=== PATIENT | female | born 1930 | race Caucasian/White ===

== ENCOUNTER 2017-12-17 08:00 | Inpatient (IN) | payer OTHER, MEDICARE ==
[2017-12-17] VITALS (8 sets, daily range): BP systolic 104–219; BP diastolic 52–119; PULSE 60–81; RESP 14–20; TEMP 97.4–98.4; O2SAT 93–97
[~2017-12-17] VITALS: Ht 157.5 cm; Wt 50.7 kg
[2017-12-17] MEDS ORDERED: VALSARTAN 80 MG TAB PO ONE (08:30)
[2017-12-17] MEDS ORDERED: SODIUM CHLORIDE 0.9% FLUSH 10 ML FLUSH IVF PRN (08:30)
--- NOTE | 2017-12-17 08:46 | PD ---
HPI Chief Complaint: General Weakness Time Seen by Provider: 08:21 Travel History International Travel<30 days: No Contact w/Intl Traveler<30days: No Traveled to known affect area: No History of Present Illness HPI 87-year-old female states for 6 months she has been having episodes where she goes completely weak and passes out but does not lose consciousness and is aware the whole time. She states her episodes have been increasing in severity and she just had 3. She denies any pain, fever or other concurrent complaints. She states her primary Dr. Fitzgerald has sent her to cardiology and neurology and next they are working on ENT. Her primary told her to come here given they were worsening. She states she is hard of hearing and history is difficult to obtain but she gives me a note from Dr. Fitzgerald that confirms her past medical history and medications. She states she did not take any of her medications today. 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) Past Surgical History Hysterectomy: Yes Other Surgery: Yes (CATARACT AND HEMORRHIOD SX) Social History Alcohol Use: No Tobacco Use: No Substance Use: No Allergies-Medications (Allergen,Severity, Reaction): Coded Allergies: Penicillins (Verified Allergy, Unknown, 12/17/17) gabapentin (Verified Allergy, Unknown, 12/17/17) lovastatin (Verified Allergy, Unknown, 12/17/17) Reported Meds & Prescriptions Reported Meds & Active Scripts Active Reported Valsartan 80 Mg Tab 80 Mg PO DAILY Tramadol (Tramadol HCl) 50 Mg Tab 50 Mg PO Q6H PRN Simvastatin 40 Mg Tab 40 Mg PO HS Nadolol 80 Mg Tab 80 Mg PO DAILY Lorazepam 0.5 Mg Tab 0.5 Mg PO HS PRN Atrovent HFA 12.9 GM Inh (Ipratropium [place]) 17 Mcg/Actuation Aer 2 Puff INH QID Eliquis (Apixaban) 2.5 Mg Tab 2.5 Mg PO BID Allopurinol 300 Mg Tab 300 Mg PO DAILY Review of Systems Except as stated in HPI: all other systems reviewed are Neg Physical Exam Narrative GENERAL: 87-year-old female in no apparent distress SKIN: Focused skin assessment warm/dry. HEAD: Atraumatic. Normocephalic. EYES: Pupils equal and round. No scleral icterus. No injection or drainage. ENT: No nasal bleeding or discharge. Mucous membranes pink and moist. NECK: Trachea midline. CARDIOVASCULAR: Regular rate and rhythm. No murmur appreciated. RESPIRATORY: No accessory muscle use. Clear to auscultation. Breath sounds equal bilaterally. GASTROINTESTINAL: Abdomen soft, non-tender, nondistended. Hepatic and splenic margins not palpable. MUSCULOSKELETAL: No obvious deformities. No clubbing. No cyanosis. NEUROLOGICAL: Awake. Moves all extremities. Normal speech. Data Data Last Documented VS Vital Signs Date Time Temp Pulse Resp B/P (MAP) Pulse Ox O2 Delivery O2 Flow Rate FiO2 12/17/17 10:09 63 195/85 (121) 12/17/17 08:34 97 Room Air 12/17/17 08:03 97.4 18 Orders Orders Valsartan (Diovan) (12/17/17 08:30) Electrocardiogram (12/17/17 08:25) Complete Blood Count With Diff (12/17/17 08:25) Comprehensive Metabolic Panel (12/17/17 08:25) Magnesium (Mg) (12/17/17 08:25) B-Type Natriuretic Peptide (12/17/17 08:25) Ckmb (Isoenzyme) Profile (12/17/17 08:25) Troponin I (12/17/17 08:25) Act Partial Throm Time (Ptt) (12/17/17 08:25) Prothrombin Time / Inr (Pt) (12/17/17 08:25) Chest, Single Ap (12/17/17 08:25) Ct Brain W/O Iv Contrast(Rout) (12/17/17 08:25) Ecg Monitoring (12/17/17 08:25) Iv Access Insert/Monitor (12/17/17 08:25) Oximetry (12/17/17 08:25) Sodium Chloride 0.9% Flush (Ns Flush) (12/17/17 08:30) Urinalysis - C+S If Indicated (12/17/17 08:25) Admit Order (Ed Use Only) (12/17/17 10:37) Labs Laboratory Tests Test 12/17/17 08:45 12/17/17 09:40 White Blood Count 5.3 TH/MM3 Red Blood Count 4.01 MIL/MM3 Hemoglobin 13.3 GM/DL Hematocrit 39.3 % Mean Corpuscular Volume 97.9 FL Mean Corpuscular Hemoglobin 33.2 PG Mean Corpuscular Hemoglobin Concent 33.9 % Red Cell Distribution Width 14.8 % Platelet Count 159 TH/MM3 Mean Platelet Volume 8.1 FL Neutrophils (%) (Auto) 71.7 % Lymphocytes (%) (Auto) 20.2 % Monocytes (%) (Auto) 6.2 % Eosinophils (%) (Auto) 1.6 % Basophils (%) (Auto) 0.3 % Neutrophils # (Auto) 3.8 TH/MM3 Lymphocytes # (Auto) 1.1 TH/MM3 Monocytes # (Auto) 0.3 TH/MM3 Eosinophils # (Auto) 0.1 TH/MM3 Basophils # (Auto) 0.0 TH/MM3 CBC Comment DIFF FINAL Differential Comment Prothrombin Time 10.1 SEC Prothromb Time International Ratio 1.0 RATIO Activated Partial Thromboplast Time 25.7 SEC Blood Urea Nitrogen 26 MG/DL Creatinine 0.99 MG/DL Random Glucose 189 MG/DL Total Protein 7.3 GM/DL Albumin 4.0 GM/DL Calcium Level 9.2 MG/DL Magnesium Level 1.8 MG/DL Alkaline Phosphatase 68 U/L Aspartate Amino Transf (AST/SGOT) 27 U/L Alanine Aminotransferase (ALT/SGPT) 28 U/L Total Bilirubin 0.7 MG/DL Sodium Level 129 MEQ/L Potassium Level 3.8 MEQ/L Chloride Level 93 MEQ/L Carbon Dioxide Level 27.4 MEQ/L Anion Gap 9 MEQ/L Estimat Glomerular Filtration Rate 53 ML/MIN Total Creatine Kinase 94 U/L Troponin I LESS THAN 0.02 NG/ML B-Type Natriuretic Peptide 318 PG/ML Urine Color COLORLESS Urine Turbidity CLEAR Urine pH 7.5 Urine Specific [place] 1.004 Urine Protein NEG mg/dL Urine Glucose (UA) TRACE mg/dL Urine Ketones NEG mg/dL Urine Occult Blood NEG Urine Nitrite NEG Urine Bilirubin NEG Urine Urobilinogen LESS THAN 2.0 MG/DL Urine Leukocyte Esterase NEG Urine RBC LESS THAN 1 /hpf Urine WBC LESS THAN 1 /hpf Microscopic Urinalysis Comment CULT NOT INDICATED MDM Medical Decision Making Medical Screen Exam Complete: Yes Emergency Medical Condition: Yes Medical Record Reviewed: Yes (Past history confirmed) Interpretation(s) CBC & BMP Diagram 12/17/17 08:45 Total Protein 7.3, Albumin 4.0, Calcium Level 9.2, Magnesium Level 1.8, Alkaline Phosphatase 68, Aspartate Amino Transf (AST/SGOT) 27, Alanine Aminotransferase (ALT/SGPT) 28, Total Bilirubin 0.7 Last [address] 12/17/17824 Signed Impressions: Service Date/Time: Sunday, December 17, 2017 08:41 - CONCLUSION: No acute disease. Porfirio Ferreira MD Chest X-Ray 12/17/17824 Signed Impressions: Service Date/Time: Sunday, December 17, 2017 08:56 - CONCLUSION: Normal examination. Mild hyperinflation. Porfirio Ferreira MD Differential Diagnosis Anemia, intracranial, UTI, worsening renal failure, electrolyte abnormality Narrative Course Will check blood work, imaging and reevaluate. Patient has hyponatremia and patient denies history of this. Will place in observation for further monitoring. Blood pressure has come down with her home medication. She agrees and was updated. Physician Communication Physician Communication dr sibley agrees to admit Diagnosis Primary Impression: Hyponatremia Additional Impression: Weakness Admitting Information Admitting Physician Requests: Observation India Herrera MD Dec 17, 2017 08:46
[2017-12-17] MEDS ORDERED: NADO80TA PO (08:50)
[2017-12-17] MEDS ORDERED: IPRA17I INH (08:50)
[2017-12-17] MEDS ORDERED: LORA0.5T PO (08:50)
[2017-12-17] MEDS ORDERED: SIMV40TA PO (08:50)
[2017-12-17] MEDS ORDERED: ALLO300T2 PO (08:50)
[2017-12-17] MEDS ORDERED: VALS1TAB64 PO (08:50)
[2017-12-17] MEDS ORDERED: TRAM50TA PO (08:50)
[2017-12-17] MEDS ORDERED: APIX2.5T PO (08:50)
--- NOTE | 2017-12-17 08:53 | RADRPT ---
EXAM DATE/TIME: 12/17/2017 08:41 [facility] COMPARISON: No previous studies available for comparison. INDICATIONS : Dizziness, weakness RADIATION DOSE: 33.67 CTDIvol (mGy) MEDICAL HISTORY : Cardiovascular disease. SURGICAL HISTORY : None. ENCOUNTER: Initial ACUITY: 1 day PAIN SCALE: 1/10 LOCATION: cranial TECHNIQUE: Multiple contiguous axial images were obtained of the head. Using automated exposure control and adj ustment of the mA and/or kV according to patient size, radiation dose was kept as low as reasonably a chievable to obtain optimal diagnostic quality images. DICOM format image data is available electro nically for review and comparison. FINDINGS: There is marked central and cortical atrophy with dilatation of ventricular and sulcal spaces. There is no parenchymal hemorrhage, acute infarction or mass lesion identified. There are no extra-axial fluid collections appreciated. The posterior fossa is unremarkable with midline fourth ventricle. T he portion of the orbits and paranasal sinuses visualized are unremarkable. CONCLUSION: No acute disease. Porfirio Ferreira MD on December 17, 2017 at 8:50 Board Certified Radiologist. This report was verified electronically.
--- NOTE | 2017-12-17 09:12 | RADRPT ---
EXAM DATE/TIME: 12/17/2017 08:56 [facility] COMPARISON: No previous studies available for comparison. INDICATIONS : Shortness of breath. MEDICAL HISTORY : Hypertension. SURGICAL HISTORY : None. ENCOUNTER: Initial ACUITY: 1 day PAIN SCORE: 0/10 LOCATION: Bilateral chest FINDINGS: A single view of the chest demonstrates the lungs to be symmetrically aerated without evidence of mas s, infiltrate or effusion. The cardiomediastinal contours are unremarkable. Osseous structures are intact. CONCLUSION: Normal examination. Mild hyperinflation. Porfirio Ferreira MD on December 17, 2017 at 9:10 Board Certified Radiologist. This report was verified electronically.
[2017-12-17 09:20] LABS: AUTOMATED NEUTROPHIL # 3.8 TH/MM3 (1.8-7.7); BASOPHIL % 0.3 % (0.0-2.0); EOSINOPHIL # 0.1 TH/MM3 (0-0.4); EOSINOPHIL % 1.6 % (0.0-4.0); HEMATOCRIT 39.3 % (35.0-46.0); HEMOGLOBIN 13.3 GM/DL (11.6-15.3); LYMPH % 20.2 % (9.0-44.0); LYMPHOCYTE # 1.1 TH/MM3 (1.0-4.8); MEAN CELL VOLUME 97.9 FL (80.0-100.0); MEAN CORPUSCULAR HEMOGLOBIN 33.2 PG (27.0-34.0); MEAN CORPUSCULAR HGB CONC 33.9 % (32.0-36.0); MEAN PLATELET VOLUME 8.1 FL (7.0-11.0); MONO % 6.2 % (0.0-8.0); MONOCYTE # 0.3 TH/MM3 (0-0.9); NEUT % 71.7 % (16.0-70.0); PLATELET COUNT 159 TH/MM3 (150-450); RED BLOOD COUNT 4.01 MIL/MM3 (4.00-5.30); RED CELL DISTRIBUTION WIDTH 14.8 % (11.6-17.2); WHITE BLOOD COUNT 5.3 TH/MM3 (4.0-11.0)
[2017-12-17 09:33] LABS: PROTHROMBIN TIME - PATIENT 10.1 SEC (9.8-11.6)
[2017-12-17 09:35] LABS: AST (GOT) 27 U/L (15-37); BICARBONATE 27.4 MEQ/L (21.0-32.0); BLOOD UREA NITROGEN 26 MG/DL (7-18); CALCIUM 9.2 MG/DL (8.5-10.1); CHLORIDE 93 MEQ/L (98-107); CREATININE 0.99 MG/DL (0.50-1.00); GLOMERULAR FILTRATION RATE 53 ML/MIN (>89); GLUCOSE,RANDOM 189 MG/DL (74-106); MAGNESIUM 1.8 MG/DL (1.5-2.5); SODIUM (NA) 129 MEQ/L (136-145)
[2017-12-17 09:36] LABS: ALT (GPT) 28 U/L (10-53)
[2017-12-17 09:39] LABS: ALKALINE PHOSPHATASE 68 U/L (45-117); TOTAL BILIRUBIN ADULT 0.7 MG/DL (0.2-1.0); TOTAL PROTEIN 7.3 GM/DL (6.4-8.2); TROPONIN I LESS THAN 0.02 NG/ML (0.02-0.05)
[2017-12-17 09:55] LABS: BILIRUBIN, URINE NEG (NEG); BLOOD, URINE NEG (NEG); GLUCOSE,URINE TRACE mg/dL (NEG); KETONE, URINE NEG (NEG); NITRITE,URINE NEG (NEG); PH, URINE 7.5 (5.0-8.5); URINE COLOR COLORLESS (YELLW/STRAW); URINE LEUKOCYTE ESTERASE NEG (NEG)
[2017-12-17] MEDS ORDERED: GADODIAMIDE PF 287 MG/ML 10 ML VIAL (for RAD MRI) IVCONTRAST ONE (10:40)
[2017-12-17] MEDS ORDERED: SODIUM CHLORIDE 0.9% FLUSH 10 ML FLUSH IV FLUSH PRN (11:30)
[2017-12-17] MEDS ORDERED: ACETAMINOPHEN 325 MG TAB PO PRN (11:30)
[2017-12-17] MEDS ORDERED: traMADol HCL 50 MG TAB PO PRN (11:30)
[2017-12-17] MEDS ORDERED: cloNIDine HCL 0.1 MG TAB PO PRN (11:30)
[2017-12-17] MEDS ORDERED: NALOXONE HCL 0.4 MG/ML AMP IV PUSH PRN (11:30)
--- NOTE | 2017-12-17 13:40 | EKG ---
Date Performed: 12/17/2017 Time Performed: 08:24:39 PTAGE: 87 years EKG: Sinus rhythm WITH FIRST DEGREE AV BLOCK ABNORMAL ECG NO PREVIOUS TRACING DOCTOR: Juvenal Medina Interpretating Date/Time 12/17/2017 13:37:16
[2017-12-17] MEDS ORDERED: RESP: ALBUTEROL 2.5 MG/IPRATROPIUM 0.5 MG NEB (PRN) NEB (13:45)
--- NOTE | 2017-12-17 14:19 | HHI.HP ---
[facility] Jerica Fitzgerald MD Admission Diagnosis hyponatremia, weakness Diagnoses: Chief Complaint: Weakness Travel History International Travel<30 Days: No Contact w/Intl Traveler <30 Da: No Traveled to Known Affected Are: No History of Present Illness The patient is an 87-year-old female with a past medical history of A. fib and CVA who is presenting to the hospital with weakness. The patient says that she recently moved to [facility] and the [facility]. She says she has been having a hard time over there and has not been getting the services she requires. She says for the past few months she has been having these episodes of weakness. She says she does not pass out and is fully alert during these episodes. She feels a strange sensation and she loses control of her body. She says the sensations shortly disappear. She tries to sit down during these episodes so she does not fall down. She said they have been occurring at a rate of 2 times per day. She has been following up with her primary care doctor and recently had an MRI done which was reportedly negative for any acute process. She also saw her substance addiction coordinator recently who did not believe her symptoms to be of cardiac origin. The patient endorses difficulty with her speech. She has a hard time saying the words she wants to. She also endorses some difficulty swallowing, stating that she has been living off of Boost. The patient says she has lost about 20 pounds recently. She believes it is difficult to be living alone at this time. Review of Systems Except as stated in HPI: all other systems reviewed are Neg Past Family Social History Past Medical History A fib First degree AVB Carotid artery stenosis CVA CKD HLP Neuropathy Zenker's diverticulum Past Surgical History Hysterectomy Hemorrhoidectomy Allergies: Coded Allergies: Penicillins (Verified Allergy, Unknown, 12/17/17) gabapentin (Verified Allergy, Unknown, 12/17/17) lovastatin (Verified Allergy, Unknown, 12/17/17) Active Ordered Medications Current Medications Medications (Trade) Dose Ordered Sig/Silviano Route Start Time Stop Time Status Last Admin (Zyloprim) 300 mg DAILY PO 12/18/17 09:00 (Eliquis) 2.5 mg BID PO 12/17/17 12:30 (Ativan) 0.5 mg HS PRN PO 12/17/17 21:00 (Diovan) 80 mg DAILY PO 12/18/17 09:00 Patient Own Medication PT OWN MED: SIMVASTA... HS PO 12/17/17 21:00 Future Hold (Corgard) 80 mg DAILY PO 12/17/17 13:00 (Catapres) 0.1 mg Q6H PRN PO 12/17/17 11:30 Sodium Chloride 1,000 ml @ 100 mls/hr Q10H IV 12/17/17 12:30 (NS Flush) 2 ml UNSCH PRN IV FLUSH 12/17/17 11:30 (NS Flush) 2 ml BID IV FLUSH 12/17/17 21:00 (Tylenol) 650 mg Q4H PRN PO 12/17/17 11:30 (Tylenol) 650 mg Q6H PRN PO 12/17/17 11:30 (Ultram) 50 mg Q4H PRN PO 12/17/17 11:30 (Narcan Inj) 0.4 mg UNSCH PRN IV PUSH 12/17/17 11:30 (Michelle-Colace) 1 tab BID PO 12/17/17 21:00 (Duoneb Neb) 1 ampule Q2HR NEB PRN NEB 12/17/17 13:45 UNV Family History No pertinent family history Social History The pt lives alone. The pt does not smoke or drink. Physical Exam Vital Signs Vital Signs Date Time Temp Pulse Resp B/P (MAP) Pulse Ox O2 Delivery O2 Flow Rate FiO2 12/17/17 12:51 12/17/17 12:06 66 14 104/52 (69) 95 Room Air 12/17/17 10:09 63 195/85 (121) 12/17/17 08:34 97 Room Air 12/17/17 08:03 97.4 75 18 219/119 (152) 93 Physical Exam GENERAL: This is a well-nourished, well-developed patient, in no apparent distress. SKIN: No rashes, ecchymoses or lesions. Cool and dry. HEAD: Atraumatic. Normocephalic. No temporal or scalp tenderness. EYES: Pupils equal round and reactive. Extraocular motions intact. No scleral icterus. No injection or drainage. ENT: Nose without bleeding, purulent drainage or septal hematoma. Throat without erythema, tonsillar hypertrophy or exudate. Uvula midline. Airway patent. NECK: Trachea midline. No JVD or lymphadenopathy. Supple, nontender, no meningeal signs. CARDIOVASCULAR: Irregularly irregular rhythm. RESPIRATORY: Clear to auscultation. Breath sounds equal bilaterally. No wheezes , rales, or rhonchi. GASTROINTESTINAL: Abdomen soft, non-tender, nondistended. No hepato-splenomegaly , or palpable masses. No guarding. MUSCULOSKELETAL: Extremities without clubbing, cyanosis, or edema. No joint tenderness, effusion, or edema noted. NEUROLOGICAL: Awake and alert. Cranial nerves II through XII intact. Motor 5/5 in upper extremities, 4/5 in lower extremities. Laboratory Laboratory Tests Test 12/17/17 08:45 12/17/17 09:40 White Blood Count 5.3 Red Blood Count 4.01 Hemoglobin 13.3 Hematocrit 39.3 Mean Corpuscular Volume 97.9 Mean Corpuscular Hemoglobin 33.2 Mean Corpuscular Hemoglobin Concent 33.9 Red Cell Distribution Width 14.8 Platelet Count 159 Mean Platelet Volume 8.1 Neutrophils (%) (Auto) 71.7 Lymphocytes (%) (Auto) 20.2 Monocytes (%) (Auto) 6.2 Eosinophils (%) (Auto) 1.6 Basophils (%) (Auto) 0.3 Neutrophils # (Auto) 3.8 Lymphocytes # (Auto) 1.1 Monocytes # (Auto) 0.3 Eosinophils # (Auto) 0.1 Basophils # (Auto) 0.0 CBC Comment DIFF FINAL Differential Comment Prothrombin Time 10.1 Prothromb Time International Ratio 1.0 Activated Partial Thromboplast Time 25.7 Blood Urea Nitrogen 26 Creatinine 0.99 Random Glucose 189 Total Protein 7.3 Albumin 4.0 Calcium Level 9.2 Magnesium Level 1.8 Alkaline Phosphatase 68 Aspartate Amino Transf (AST/SGOT) 27 Alanine Aminotransferase (ALT/SGPT) 28 Total Bilirubin 0.7 Sodium Level 129 Potassium Level 3.8 Chloride Level 93 Carbon Dioxide Level 27.4 Anion Gap 9 Estimat Glomerular Filtration Rate 53 Total Creatine Kinase 94 Troponin I LESS THAN 0.02 B-Type Natriuretic Peptide 318 Urine Color COLORLESS Urine Turbidity CLEAR Urine pH 7.5 Urine Specific [place] 1.004 Urine Protein NEG Urine Glucose (UA) TRACE Urine Ketones NEG Urine Occult Blood NEG Urine Nitrite NEG Urine Bilirubin NEG Urine Urobilinogen LESS THAN 2.0 Urine Leukocyte Esterase NEG Urine RBC LESS THAN 1 Urine WBC LESS THAN 1 Microscopic Urinalysis Comment CULT NOT INDICATED Result Diagram: 12/17/1784412/17/17844 Imaging Last Impressions Head CT 12/17/17824 Signed Impressions: Service Date/Time: Sunday, December 17, 2017 08:41 - CONCLUSION: No acute disease. Porfirio Ferreira MD Chest X-Ray 12/17/17824 Signed Impressions: Service Date/Time: Sunday, December 17, 2017 08:56 - CONCLUSION: Normal examination. Mild hyperinflation. MD Christiano Wan VTE Risk Assessment Christiano VTE Risk Assessment: Mod/High Risk (score >= 2) Caprini Risk Assessment Model Point Value = 1 Point Value = 2 Point Value = 3 Point Value = 5 Age 41-60 Minor surgery BMI > 25 kg/m2 Swollen legs Varicose veins or History of unexplained or recurrent spontaneous Oral contraceptives or hormone replacement Sepsis (< 1 month) Serious lung disease, including pneumonia (< 1 month) Abnormal pulmonary function Acute myocardial infarction Congestive heart failure (< 1 month) History of inflammatory bowel disease Medical patient at bed rest Age 61-74 Arthroscopic surgery Major open surgery (> 45 min) Laparoscopic surgery (> 45 min) Malignancy Confined to bed (> 72 hours) Immobilizing plaster cast Central venous access Age >= 75 History of VTE Family history of VTE Factor V Leiden Prothrombin 34175A Lupus anticoagulant Anticardiolipin antibodies Elevated serum homocysteine Heparin-induced thrombocytopenia Other congenital or acquired thrombophilia Stroke (< 1 month) Elective arthroplasty Hip, pelvis, or leg fracture Acute spinal cord injury (< 1 month) Prophylaxis Regimen Total Risk Factor Score Risk Level Prophylaxis Regimen 0-1 Low Early ambulation 2 Moderate Order ONE of the following: *Sequential Compression Device (SCD) *Heparin 5000 units SQ BID 3-4 Higher Order ONE of the following medications: *Heparin 5000 units SQ TID *Enoxaparin/Lovenox 40 mg SQ daily (WT < 150 kg, CrCl > 30 mL/min) *Enoxaparin/Lovenox 30 mg SQ daily (WT < 150 kg, CrCl > 10-29 mL/min) *Enoxaparin/Lovenox 30 mg SQ BID (WT < 150 kg, CrCl > 30 mL/min) AND/OR *Sequential Compression Device (SCD) 5 or more Highest Order ONE of the following medications: *Heparin 5000 units SQ TID (Preferred with Epidurals) *Enoxaparin/Lovenox 40 mg SQ daily (WT < 150 kg, CrCl > 30 mL/min) *Enoxaparin/Lovenox 30 mg SQ daily (WT < 150 kg, CrCl > 10-29 mL/min) *Enoxaparin/Lovenox 30 mg SQ BID (WT < 150 kg, CrCl > 30 mL/min) AND *Sequential Compression Device (SCD) Assessment and Plan Assessment and Plan Weakness The pt endorses episodes where she feels strange and has no control over her body. She said she follows with her PCP and recently had a normal MRI. She also saw cardiology who did not believe her symptoms were of cardiac options. She has lower extremity weakness but does have neuropathy. She also endorses dysarthria. She has a history of CVA. - neurology consult requested. - carotid US and EEG pending. - neuro checks. - PT/OT/ST. - continue Eliquis. Hypertensive urgency May be factor to her above symptoms. - resume home meds. Adjust regimen as needed. - clonidine as needed. Dysphagia The pt endorses problems with swallowing. She has a history of Zenker's diverticulum. - full liquid diet. - swallow eval. - GI consult if needed. Hyponatremia Baseline unknown. Likely s/t decreased PO intake. - follow BMP. - ADAT. Hyperglycemia Glucose elevated on admission. - check A1c. PPx: Dandre Discussed Condition With Pt, Dr. Herrera, nurse Physician Certification 2 Midnight Certification Type: Admission for Inpatient Services Order for Inpatient Services The services are ordered in accordance with Medicare regulations or non- Medicare payer requirements, as applicable. In the case of services not specified as inpatient-only, they are appropriately provided as inpatient services in accordance with the 2-midnight benchmark. Estimated LOS (days): 2 days is the estimated time the patient will need to remain in the hospital, assuming treatment plan goals are met and no additional complications. Post-Hospital Plan: Not yet determined Niko Chicas DO Dec 17, 2017 14:19
[2017-12-17] MEDS: SODIUM CHLOR 0.9% 1000 ML INJ 1,000 ML IV SCH ×2 (15:13→21:53)
[2017-12-17] MEDS: NADOLOL 40 MG TAB PO SCH (15:13)
--- NOTE | 2017-12-17 15:33 | RADRPT ---
EXAM DATE/TIME: 12/17/2017 14:26 [facility] COMPARISON: No previous studies available for comparison. INDICATIONS : Syncope. MEDICAL HISTORY : Hypertension. Hard of hearing. Coronary artery disease. Anticoagulant therapy, eliquis. Atrial fi brillation. GOUT. Kidney disease. Neuropathy. Mitral valve regurge. SURGICAL HISTORY : Hysterectomy. Bilateral cataract surgery. ENCOUNTER: Initial ACUITY: 2 days PAIN SCORE: 1/10 LOCATION: Bilateral neck PEAK SYSTOLIC VELOCITIES (cm/sec): ICA/CCA RATIO: Right: 1.5 Left: 3.4 ICA: Right: 129.8 Left: 79.9 CCA: Right: 86.6 Left: 23.6 ECA: Right: 80.6 Left: 59.0 VERTEBRAL: Right: 123.9 antegrade Left: 63.3 antegrade Elevated flow velocities and ICA/CCA ratios have been found to correlate with increased degrees of vessel stenosis, calculated as percentage of diameter relative to a normal segment of distal ICA/CCA FINDINGS: RIGHT CAROTID: There is fibrous plaque with elevated velocity which may correspond to 50% stenosis. LEFT CAROTID: There is elevated ratios with decreased velocities in the common carotid artery. Severe foot proximal stenosis. VERTEBRAL ARTERIES: Antegrade flow is seen in both vertebral arteries. MISCELLANEOUS: None. CONCLUSION: Potential stenosis bilaterally in the bifurcation on the right and proximally on the left. CT angiogr aphy of the cervicobrachial arch and carotid arteries is recommended for further evaluation if clinic ally indicated. Juvenal Adam MD on December 17, 2017 at 15:29 Board Certified Radiologist. This report was verified electronically.
[2017-12-17] MEDS: APIXABAN 2.5 MG TABLET PO SCH ×2 (16:27→21:52)
[2017-12-17 16:54] LABS: HEMOGLOBIN A1C 6.1 % (4.3-6.0)
--- NOTE | 2017-12-17 20:09 | MB ---
cc: Jagdish Luna MD, PhD DATE: 12/17/2017 REASON FOR CONSULTATION: Episodic weakness. HISTORY OF PRESENT ILLNESS: Ms. Sims is a very nice 87-year-old female who has a long history of neuropathy, for the past several months has had intermittent weakness on one side or the other, right side or left side alternating, lasting several minutes at a time. She does have history of atrial fibrillation. She takes Eliquis. She has headaches, but no history of migraine headaches. PAST MEDICAL HISTORY: History of atrial fibrillation, first degree AV block, carotid stenosis, stroke in the past, hyperlipidemia, neuropathy, Zenker's diverticulum, hysterectomy, and hemorrhoidectomy. ALLERGIES: 1. PENICILLIN. 2. GABAPENTIN. 3. LOVASTATIN. CURRENT MEDICATIONS: 1. Allopurinol. 2. Valsartan. 3. Ativan. 4. Senna. 5. Nadolol. 6. Eliquis 2.5 mg b.i.d. 7. Sodium chloride. 8. Clonidine 9. Tylenol. 10. Ultram. 11. Narcan. NEUROLOGIC EXAMINATION: VITAL SIGNS: Blood pressure is 141/63, pulse 60, respiratory rate is 16, temperature 98.2 degrees. HIGHER CORTICAL FUNCTION: Normal. CRANIAL NERVES: 2-12 are normal. MOTOR EXAM: 5/5 strength of all groups. There is no drift. Fine motor skills are normal. Reflexes are symmetric. DIAGNOSTIC STUDIES: CT of the brain is normal. EKG shows first degree AV block, sinus rhythm. Carotid ultrasound: Bilateral carotid stenosis. Recommend CTA. LABORATORY DATA: White count 5300; hemoglobin 13.3; hematocrit 39%; platelets 159,000. Sodium is 129, potassium 3.8, chloride 93, CO2 is 27, the BUN is 26, creatinine 0.99, GFR is 53, glucose 189, AST 27, ALT is 28. PT 10, INR 1, aPTT 25.7. IMPRESSION: Intermittent weakness, right side versus left side. Rule out transient ischemic attack. Rule out basilar migraine. Rule out cervical spondylosis. RECOMMENDATION: MRI brain. Also, we will obtain an a.m. MRA of the brain, MRI of the cervical spine and MRA of the neck. Add low dose aspirin to the Eliquis with the possibility of transient ischemic attack. Jagdish Luna MD, PhD RODRIGO/ARCHIE , 07:52 PM , 08:08 PM
[2017-12-17] MEDS: ASPIRIN EC 81 MG TABEC PO SCH (20:30)
[2017-12-17] MEDS ORDERED: SIMVASTATIN 40 MG PO SCH (21:00)
[2017-12-17] MEDS: SODIUM CHLORIDE 0.9% FLUSH 10 ML FLUSH IV FLUSH SCH (21:00)
[2017-12-17] MEDS: DOCUSATE SODIUM 50 MG/SENNA 8.6 MG TAB PO SCH (21:52)
[2017-12-17] MEDS: LORazepam 0.5 MG TAB PO PRN (21:52)
[2017-12-18] VITALS (7 sets, daily range): BP systolic 121–198; BP diastolic 64–88; PULSE 57–70; RESP 16–20; TEMP 97.4–98.5; O2SAT 94–97
[2017-12-18] MEDS: APIXABAN 2.5 MG TABLET PO SCH ×2 (07:29→22:34)
[2017-12-18] MEDS: DOCUSATE SODIUM 50 MG/SENNA 8.6 MG TAB PO SCH ×2 (07:29→22:34)
[2017-12-18] MEDS: ASPIRIN EC 81 MG TABEC PO SCH (07:29)
[2017-12-18] MEDS: ALLOPURINOL 300 MG TAB PO SCH (07:29)
[2017-12-18] MEDS: LORazepam 0.5 MG TAB PO PRN (07:29)
[2017-12-18] MEDS: SODIUM CHLOR 0.9% 1000 ML INJ 1,000 ML IV SCH ×2 (08:30→18:30)
[2017-12-18] MEDS ORDERED: VALSARTAN 80 MG TAB PO SCH (09:00)
[2017-12-18] MEDS: NADOLOL 40 MG TAB PO SCH (09:00)
[2017-12-18] MEDS: SODIUM CHLORIDE 0.9% FLUSH 10 ML FLUSH IV FLUSH SCH ×2 (09:00→22:34)
[2017-12-18] MEDS ORDERED: NADOLOL 80 MG PO SCH (09:00)
--- NOTE | 2017-12-18 09:04 | RADRPT ---
EXAM DATE/TIME: 12/18/2017 07:48 [facility] COMPARISON: No previous studies available for comparison. INDICATIONS : Inability to ambulate. MEDICAL HISTORY : Hypertension. Hypercholesterolemia. CVA. SURGICAL HISTORY : Hysterectomy. ENCOUNTER: Initial ACUITY: 1 day PAIN SCORE: 0/10 LOCATION: cranial TECHNIQUE: Multiplanar, multisequence MRI examination of the cervical spine was performed. FINDINGS: The patient has had previous intervertebral fusion at C3-4. There is grade 1 anterolisthesis of C4 on C5 and retrolisthesis of C6 on C7. Severe disc space narrowing at C5-6 and C6-7 noted, and moderate disc space narrowing at C4-5. Grade 1 anterolisthesis of C7 on T1 also noted. Moderate multilevel fac et hypertrophic changes are present. There is no prevertebral soft tissue swelling or compression def ormity. There is mild reactive endplate edema at C6-7, as well as C5-C6 to a lesser extent. C2-C3: There is mild left foraminal encroachment. C3-C4: Diffuse osteophytic ridging with effacement of the ventral thecal sac and moderate stenosis. There is severe bilateral foraminal narrowing and uncovertebral hypertrophy. C4-C5: Diffuse disc osteophyte complex with moderate to severe canal stenosis. Uncovertebral hypertrophy and severe bilateral foraminal narrowing. C5-C6: Severe canal stenosis with mild mass effect on the cord secondary to a diffuse disc osteophyte comple x effacing the thecal sac. There is severe foraminal stenosis bilaterally secondary to uncovertebral hypertrophy and facet hypertrophy. C6-C7: Severe right, moderate left foraminal stenosis secondary to facet and uncovertebral hypertrophy and a diffuse disc osteophyte complex with mild abutment of the cord and moderate canal stenosis. C7-T1: The thecal sac has a normal configuration. There is no evidence of disc herniation or spinal canal s tenosis. The neural foramina are patent bilaterally. CONCLUSION: Degenerative changes and post surgical changes are noted as above. Coleman Santiago MD on December 18, 2017 at 8:27 Board Certified Radiologist. This report was verified electronically.
--- NOTE | 2017-12-18 09:04 | RADRPT ---
EXAM DATE/TIME: 12/18/2017 07:48 [facility] COMPARISON: CT BRAIN W/O CONTRAST, December 17, 2017, 8:41. INDICATIONS : Inability to ambulate. CONTRAST: 10 cc Omniscan (gadodiamide) IV MEDICAL HISTORY : Hypercholesterolemia. Hypertension. CVA. SURGICAL HISTORY : Hemorrhoidectomy. Hysterectomy. ENCOUNTER: Initial ACUITY: 1 day PAIN SCORE: 0/10 LOCATION: Paraspinal TECHNIQUE: Multiplanar, multisequence MRI of the brain was performed both prior to and following the administrat ion of paramagnetic contrast. FINDINGS: Diffusion weighted images demonstrate no evidence for acute infarction. There is mild volume loss see n diffusely. Scattered foci of increased flair signal are noted in the bilateral periventricular whit e matter. This is most likely on the basis of mild chronic microvascular ischemic disease. There is n o hemorrhage or mass. No abnormal areas of enhancement are identified following contrast administrati on. CONCLUSION: Mild atrophy and white matter disease. Coleman Santiago MD on December 18, 2017 at 9:00 Board Certified Radiologist. This report was verified electronically.
--- NOTE | 2017-12-18 09:38 | RADRPT ---
EXAM DATE/TIME: 12/18/2017 07:48 [facility] COMPARISON: US CAROTID ARTERIES, December 17, 2017, 14:26. MRI BRAIN W & W/O CONTRAST, December 18, 2017, 7:48. MRA BRAIN W/O CONTRAST, December 18, 2017, 7:48. INDICATIONS : Stenosis. CONTRAST: 10 cc Omniscan (gadodiamide) IV MEDICAL HISTORY : Hypertension. Hypercholesterolemia. CVA. SURGICAL HISTORY : Hysterectomy. ENCOUNTER: Initial ACUITY: 1 day PAIN SCORE: 0/10 LOCATION: neck Percent stenosis is calculated using the diameter of the stenotic region over the diameter of the nor mal distal internal carotid artery. TECHNIQUE: Bolus infused MRA of the extracranial circulation was performed using a neurovascular coil. Post pro cessing was performed including rotating subvolume maximum intensity projections of each carotid lupillo ry, rotating full volume maximum intensity projections of both carotid arteries, sagittal and coronal sliding thin slab reformations of each carotid artery, and left oblique sliding thin slab reformatio n through the aortic arch to include the origin of the arch branch vessels. FINDINGS: There is mild narrowing of the left subclavian artery distal to the origin of the left vertebral lupillo ry extending over 2.5 cm on coronal image 27. AORTIC ARCH: There is a three vessel origin of the great vessels from the aorta. No evidence of ostial narrowing. RIGHT CAROTID: The common carotid artery is intact. The carotid bulb has a normal configuration without ulceration or narrowing. The internal carotid artery lumen is smooth without stenosis. The external carotid ar sunny is intact. LEFT CAROTID: There is a severe, hemodynamically significant stenosis of the left distal common carotid artery at t he carotid bifurcation. There is essentially a 3 mm segment of vessel without signal visualized intra luminally. This is related to a high grade stenosis over 70%. VERTEBRALS: The vertebral arteries have a symmetric diameter. No stenotic lesions are seen. CONCLUSION: Hemodynamically significant stenosis of the left distal common carotid artery at the bifurcation with moderate atherosclerosis of the left carotid bulb. Mild left subclavian atherosclerosis is also seen as above. Coleman Santiago MD on December 18, 2017 at 9:32 Board Certified Radiologist. This report was verified electronically.
--- NOTE | 2017-12-18 09:45 | RADRPT ---
EXAM DATE/TIME: 12/18/2017 08:44 [facility] COMPARISON: No previous studies available for comparison. INDICATIONS : General weakness, evaluate for spinal cord compression. RADIATION DOSE: 38.66 CTDIvol (mGy) MEDICAL HISTORY : Stroke. Hypertension. SURGICAL HISTORY : Hysterectomy. ENCOUNTER: Initial ACUITY: 1 day PAIN SCALE: 0/10 LOCATION: Bilateral neck TECHNIQUE: Volumetric scanning of the cervical spine was performed. Multiplanar reconstructions in the sagittal, coronal and oblique axial planes were performed. Using automated exposure control and adjustment o f the mA and/or kV according to patient size, radiation dose was kept as low as reasonably achievable to obtain optimal diagnostic quality images. DICOM format image data is available electronically f or review and comparison. FINDINGS: There is previous intervertebral fusion at C3-4 with grade 1 anterolisthesis of C4 on C5, grade 1 ret rolisthesis of C6 on C7 and grade 1 anterolisthesis of C7 on T1. There are no compression deformities . Severe disc space narrowing with sclerosis and osteophytosis at C4-5 through C6-7. Mild disc space narrowing at C7-T1. Moderate multilevel facet hypertrophic changes are noted. There is moderate uncov ertebral hypertrophy at C4-5 to C6-7. Odontoid process is intact. C2-C3: The bony spinal canal is normal in size. No evidence of disc bulge or herniation. The neural forami na are bilaterally patent. C3-C4: Moderate to severe left, mild right foraminal narrowing. Mild canal narrowing. C4-C5: There is severe left foraminal stenosis secondary to facet and uncovertebral hypertrophy. C5-C6: Moderate canal stenosis secondary to a diffuse disc osteophyte complex and uncovertebral hypertrophy with severe bilateral right greater than left foraminal narrowing. C6-C7: Diffuse disc osteophyte complex and uncovertebral hypertrophy with moderate right foraminal stenosis and severe canal stenosis. C7-T1: The bony spinal canal is normal in size. No evidence of disc bulge or herniation. The neural forami na are bilaterally patent. CONCLUSION: Ywbyoxpe-gl-ipewxi degenerative changes and postsurgical changes noted. Coleman Santiago MD on December 18, 2017 at 9:39 Board Certified Radiologist. This report was verified electronically.
--- NOTE | 2017-12-18 09:47 | RADRPT ---
EXAM DATE/TIME: 12/18/2017 07:48 [facility] COMPARISON: No previous studies available for comparison. INDICATIONS : Inability to ambulate. MEDICAL HISTORY : Hypercholesterolemia, hypertension. CVA. SURGICAL HISTORY : Hemorrhoidectomy, hysterectomy. ENCOUNTER: Initial. ACUITY: One day. PAIN SCORE: 0/10. LOCATION: Paraspinal Please note a normal MRA of the brain does not entirely exclude the possibility of a small aneurysm, nor the possibility of distal intracranial vessel disease. TECHNIQUE: 3D time of flight MRA was performed. Source images, multiplanar STS MIP, and 3D volume MIP reconstru ctions were reviewed. FINDINGS: The internal carotid and anterior cerebral arteries, bilateral middle cerebral arteries are widely pa tent. There is no evidence for high-grade stenosis however there is mild atherosclerotic irregularity of the right middle cerebral artery and bilateral anterior cervical arteries, A1 division, and supra clinoid internal carotid arteries. There is also focal stenosis at the junction of the basilar artery and posterior cerebral arteries. Posterior communicating arteries and anterior communicating artery are patent. The do not see an aneurysm. The distal right vertebral artery ends in the posterior infer ior cerebellar artery. CONCLUSION: Mild atherosclerosis. No high grade stenosis or aneurysm. Coleman Santiago MD on December 18, 2017 at 8:31 Board Certified Radiologist. This report was verified electronically.
--- NOTE | 2017-12-18 10:25 | EKG ---
Date Performed: 12/18/2017 Time Performed: 09:53:08 PTAGE: 87 years EKG: Sinus rhythm WITH OCCASIONAL SUPRAVENTRICULAR PREMATURE COMPLEXES BORDERLINE ECG PREVIOUS TRACING : 12/17/2017 08.24 Since the previous tracing, no significant change noted DOCTOR: Rell Pool Interpretating Date/Time 12/18/2017 10:25:26
[2017-12-18 11:44] LABS: AUTOMATED NEUTROPHIL # 3.9 TH/MM3 (1.8-7.7); BASOPHIL % 0.3 % (0.0-2.0); EOSINOPHIL # 0.1 TH/MM3 (0-0.4); EOSINOPHIL % 1.1 % (0.0-4.0); HEMATOCRIT 38.7 % (35.0-46.0); HEMOGLOBIN 12.9 GM/DL (11.6-15.3); LYMPH % 22.7 % (9.0-44.0); LYMPHOCYTE # 1.3 TH/MM3 (1.0-4.8); MEAN CELL VOLUME 99.1 FL (80.0-100.0); MEAN CORPUSCULAR HEMOGLOBIN 33.1 PG (27.0-34.0); MEAN CORPUSCULAR HGB CONC 33.4 % (32.0-36.0); MEAN PLATELET VOLUME 7.7 FL (7.0-11.0); MONO % 7.8 % (0.0-8.0); MONOCYTE # 0.4 TH/MM3 (0-0.9); NEUT % 68.1 % (16.0-70.0); PLATELET COUNT 145 TH/MM3 (150-450); RED BLOOD COUNT 3.91 MIL/MM3 (4.00-5.30); RED CELL DISTRIBUTION WIDTH 14.8 % (11.6-17.2); WHITE BLOOD COUNT 5.8 TH/MM3 (4.0-11.0)
[2017-12-18 12:38] LABS: ALBUMIN 3.6 GM/DL (3.4-5.0); ALKALINE PHOSPHATASE 62 U/L (45-117); ALT (GPT) 25 U/L (10-53); AST (GOT) 28 U/L (15-37); BICARBONATE 27.8 MEQ/L (21.0-32.0); BLOOD UREA NITROGEN 18 MG/DL (7-18); CALCIUM 8.1 MG/DL (8.5-10.1); CHLORIDE 100 MEQ/L (98-107); GLOMERULAR FILTRATION RATE 59 ML/MIN (>89); GLUCOSE,RANDOM 122 MG/DL (74-106); SODIUM (NA) 135 MEQ/L (136-145); TOTAL BILIRUBIN ADULT 0.6 MG/DL (0.2-1.0); TOTAL PROTEIN 6.8 GM/DL (6.4-8.2)
--- NOTE | 2017-12-18 13:50 | HHI.PR ---
Subjective Remarks Patient says she is feeling a little better today, however still lightheaded. Denies any chest pain or shortness of breath. Denies nausea or vomiting. Objective Vital Signs Date Time Temp Pulse Resp B/P (MAP) Pulse Ox O2 Delivery O2 Flow Rate FiO2 12/18/17 06:45 98.5 65 17 175/79 (111) 94 12/18/17 04:04 57 12/18/17 03:36 97.9 70 17 163/85 (111) 95 12/18/17 02:13 Room Air 12/18/17 01:00 58 12/17/17 23:10 98.4 81 18 110/59 (76) 97 12/17/17 19:12 98.2 60 16 141/63 (89) 94 12/17/17 17:35 63 12/17/17 14:14 98.2 60 20 212/92 (132) 96 203/97 (132) 145/87 (106) I/O 12/17/17 12/17/17 12/17/17 12/18/17 12/18/17 12/18/17 07:00 15:00 23:00 07:00 15:00 23:00 Intake Total 360 ml Balance 360 ml Intake Oral 360 ml # Voids 2 # Bowel Movements 0 Result Diagram: 12/18/17 1100 12/18/17 1100 Objective Remarks GENERAL: Patient sitting up on edge of bed eating. Appears comfortable. SKIN: Warm and dry. HEAD: Normocephalic. EYES: No scleral icterus. No injection or drainage. NECK: Supple, trachea midline. No JVD. CARDIOVASCULAR: Regular rate and rhythm without murmurs, gallops, or rubs. RESPIRATORY: Breath sounds equal bilaterally. No accessory muscle use. GASTROINTESTINAL: Abdomen soft, non-tender, nondistended. MUSCULOSKELETAL: No cyanosis, or edema. BACK: Nontender without obvious deformity. No CVA tenderness. A/P Assessment and Plan ========12/18/17. ======= Bilateral carotid stenosis on MRA. Neurology following. Appreciate assistance. Consult vascular surgery. Patient says that she is elderly, is not sure she would want surgery. Will call family friend. //Weakness The pt endorses episodes where she feels strange and has no control over her body. She said she follows with her PCP and recently had a normal MRI. She also saw cardiology who did not believe her symptoms were of cardiac options. She has lower extremity weakness but does have neuropathy. She also endorses dysarthria. She has a history of CVA. - neurology consult requested. - carotid US and EEG pending. - neuro checks. - PT/OT/ST. - continue Eliquis. //Bilateral carotid stenosis as seen on MRA. We will consult vascular surgery to discuss options with patient. Will discuss with family friend as per patient request. //Hypertensive urgency May be factor to her above symptoms. - resume home meds. Adjust regimen as needed. - clonidine as needed. //Dysphagia The pt endorses problems with swallowing. She has a history of Zenker's diverticulum. - full liquid diet. - swallow eval. - GI consult if needed. = Patient passed swallow eval. This is not related to patient's current admission. Follow-up with GI as outpatient. //Hyponatremia = Sodium 135. Improving. Baseline unknown. Likely s/t decreased PO intake. - follow BMP. - ADAT. //Hyperglycemia Glucose elevated on admission. - check A1c. PPx: Eliquis Discharge Planning Neurology and vascular surgery following Patient would likely benefit from SNF. Appreciate PT assistance. Arnie Glaser MD Dec 18, 2017 13:50
--- NOTE | 2017-12-18 17:19 | MB ---
cc: Deisy Lester MD DATE: 12/18/2017 HISTORY OF PRESENT ILLNESS: This 87-year-old lady who is awake, alert, oriented, in charge of all her faculties, noted that over the past few months she is getting more and more intermittently weak. Her right leg is giving away and she also had several episodes of this throughout. The patient has history of multiple medical problems. On most recent neck MRI/MRA, the patient is found to have severe left internal carotid artery stenosis, probably about 80 to 90%. Question arose about possible vascular therapy in the face of the patient's age and symptoms. In addition patient has cervical spinal stenosis which is adding to some degree to her symptoms, but she would be a very poor candidate for spinal cervical decompression this age. 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 PAST SURGICAL HISTORY: Hysterectomy, hemorrhoidectomy and Zenker's diverticulum resection. ALLERGIES: PENICILLIN AND GABAPENTIN. MEDICATIONS: The patient is on a number of medications, including Eliquis. PHYSICAL EXAMINATION: GENERAL: Reveals a pleasant, 87-year-old lady, awake, alert, oriented, completely lucid. HEENT: Normocephalic. Pupils are equal, reactive. Extraocular muscles intact. NECK: No trauma to the neck. Bilateral carotid pulses and bilateral carotid bruit. 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 The patient is fairly thin. HEART: Actually regular rhythm. While the patient has history of atrial fibrillation, I am not perceiving that. When I examined the patient, she was clearly in sinus rhythm. ABDOMEN: Soft, active bowel sounds. EXTREMITIES: The patient has bilateral femoral, popliteal, dorsalis pedis and posterior tibial pulses on palpation. No signs of acute vascular deficit. BACK: Normal. NEUROLOGIC: The patient has currently equal bilateral motoric and sensory function. Some neuropathy in both legs. The patient states that just recently her right leg gave out and it took a while for it to come back. Deep tendon reflexes are normal. No pathologic reflexes. The patient does have a visual defect of the left eye in the lateral field. IMPRESSION AND RECOMMENDATIONS: The patient with multiple medical problems and advanced age, now with a very tight left internal carotid artery stenosis. The dictum on patient's of this nature varies. Considering the patient's age, this is probably close to the limit of the age group that we would want to operate on and general recommendation is that the patient should not have a carotid surgery if they have less than 4 years of expected lifespan by somewhat subjective but general criteria. On the other hand, this lady is completely in control of her faculties and has a relatively reasonable lifestyle. As far as her general condition is concerned, I am going to order an echo and discuss this with a marketing strategy lead and neurologist. The patient had a recent ischemia, but no acute event currently, there is no acute loss of tissue. Therefore this makes it quite complex decision where patient's age and some of the medical issues work against her on the other hand the presence of a tight carotid stenosis is certainly to result in a stroke if left untreated. Based on full medical workup will have to make the decision but I believe at this point providing no surprises patient should be offered carotid endarterectomy. Will discuss risks and benefits with the patient and and make the final decision. Thank you very much for the referral. MD RICHARD Agosto/ARCHIE , 04:57 PM , 05:18 PM MTDTravis
--- NOTE | 2017-12-18 17:36 | PD.CAR.PN ---
CVT Progress Note Subjective/Hospital Course: 87-year-old female with tight left carotid artery stenosis questionably symptomatic Patient is of advanced age and this is a relative barrier to carotid endarterectomy as noted in the full consult. On the other hand patient is in full control of her faculties and has reasonably satisfactory lifestyle except for the above-noted so I believe it is quite appropriate to work patient up from the cardiac point and if the risk of surgery is not prohibitive she should be considered for carotid endarterectomy despite her age Would like to perform echo over the weekend and then see what we are going to do with the patient early next week We will discuss with neurology and cardiology specialists Full consult dictated Thanks J Objective: Vital Signs Date Time Temp Pulse Resp B/P (MAP) Pulse Ox O2 Delivery O2 Flow Rate FiO2 12/18/17 12:00 98.1 65 18 198/88 (124) 97 12/18/17 06:45 98.5 65 17 175/79 (111) 94 12/18/17 04:04 57 12/18/17 03:36 97.9 70 17 163/85 (111) 95 12/18/17 02:13 Room Air 12/18/17 01:00 58 12/17/17 23:10 98.4 81 18 110/59 (76) 97 12/17/17 19:12 98.2 60 16 141/63 (89) 94 12/17/17 17:35 63 Labs: Laboratory Tests Test 12/18/17 11:00 White Blood Count 5.8 TH/MM3 (4.0-11.0) Red Blood Count 3.91 MIL/MM3 (4.00-5.30) Hemoglobin 12.9 GM/DL (11.6-15.3) Hematocrit 38.7 % (35.0-46.0) Mean Corpuscular Volume 99.1 FL (80.0-100.0) Mean Corpuscular Hemoglobin 33.1 PG (27.0-34.0) Mean Corpuscular Hemoglobin Concent 33.4 % (32.0-36.0) Red Cell Distribution Width 14.8 % (11.6-17.2) Platelet Count 145 TH/MM3 (150-450) Mean Platelet Volume 7.7 FL (7.0-11.0) Neutrophils (%) (Auto) 68.1 % (16.0-70.0) Lymphocytes (%) (Auto) 22.7 % (9.0-44.0) Monocytes (%) (Auto) 7.8 % (0.0-8.0) Eosinophils (%) (Auto) 1.1 % (0.0-4.0) Basophils (%) (Auto) 0.3 % (0.0-2.0) Neutrophils # (Auto) 3.9 TH/MM3 (1.8-7.7) Lymphocytes # (Auto) 1.3 TH/MM3 (1.0-4.8) Monocytes # (Auto) 0.4 TH/MM3 (0-0.9) Eosinophils # (Auto) 0.1 TH/MM3 (0-0.4) Basophils # (Auto) 0.0 TH/MM3 (0-0.2) CBC Comment DIFF FINAL Differential Comment Blood Urea Nitrogen 18 MG/DL (7-18) Creatinine 0.90 MG/DL (0.50-1.00) Random Glucose 122 MG/DL (74-106) Total Protein 6.8 GM/DL (6.4-8.2) Albumin 3.6 GM/DL (3.4-5.0) Calcium Level 8.1 MG/DL (8.5-10.1) Alkaline Phosphatase 62 U/L (45-117) Aspartate Amino Transf (AST/SGOT) 28 U/L (15-37) Alanine Aminotransferase (ALT/SGPT) 25 U/L (10-53) Total Bilirubin 0.6 MG/DL (0.2-1.0) Sodium Level 135 MEQ/L (136-145) Potassium Level 4.0 MEQ/L (3.5-5.1) Chloride Level 100 MEQ/L (98-107) Carbon Dioxide Level 27.8 MEQ/L (21.0-32.0) Anion Gap 7 MEQ/L (5-15) Estimat Glomerular Filtration Rate 59 ML/MIN (>89) Result Diagram: 12/18/17 1100 12/18/17 1100 Deisy Lester MD Dec 18, 2017 17:36
--- NOTE | 2017-12-18 19:02 | MG ---
cc: Jagdish Luna MD, PhD Jagdish Luna MD PhD TEST #[id number] TECHNIQUE: This is a 17 channel EEG. DESCRIPTION: The background rhythm showed a symmetrical alpha rhythm, frequency of 8 Hz. During drowsiness, there is mild slowing in the theta range at 6 Hz. No lateralizing features are identified. The patient does fall asleep and normal sleep spindles are identified. INTERPRETATION: Normal electroencephalogram. Jagdish Luna MD, PhD RODRIGO/ , 06:48 PM , 07:01 PM
[2017-12-19] VITALS: BP 168/75; PULSE 71; RESP 20; TEMP 97.2; O2SAT 96
[2017-12-19] MEDS: LORazepam 0.5 MG TAB PO PRN ×3 (01:13→21:32)
[2017-12-19] MEDS: SODIUM CHLOR 0.9% 1000 ML INJ 1,000 ML IV SCH (04:30)
[2017-12-19 05:02] VITALS: BP 161/67; PULSE 66; RESP 20; TEMP 97.4; O2SAT 95
[2017-12-19 08:00] VITALS: BP 181/77; PULSE 66; RESP 19; TEMP 98; O2SAT 96
[2017-12-19] MEDS: VALSARTAN 160 MG TAB PO SCH (09:00)
[2017-12-19] MEDS: ALLOPURINOL 300 MG TAB PO SCH (09:00)
--- NOTE | 2017-12-19 09:37 | HHI.PR ---
Review/Management Diagnosis I think her intermittent weakness which she describes at times as being right sided or left sided or bilateral could be secondary to cervical spinal stenosis She has a significant left carotid stenosis which I do not think is a cause of her current symptoms. Plan Recommend neurosurgical evaluation of her cervical spinal stenosis' Will obtain Cspine xray with flexion-extension to r/o any instability of the cervical spine Regarding the left carotid stenosis, I think it is reasonable to consider endarterectomy if she is felt to be a surgical candidate Diagnosis/Plan: Subjective Subjective Comments No acute events reported Active Medications Current Medications Medications (Trade) Dose Ordered Sig/Silviano Route Start Time Stop Time Status Last Admin (Zyloprim) 300 mg DAILY PO 12/18/17 09:00 12/18/17 07:29 (Eliquis) 2.5 mg BID PO 12/17/17 12:30 12/18/17 22:34 Patient Own Medication PT OWN MED: SIMVASTA... HS PO 12/17/17 21:00 Future Hold (Corgard) 80 mg DAILY PO 12/17/17 13:00 12/18/17 09:00 (Catapres) 0.1 mg Q6H PRN PO 12/17/17 11:30 12/18/17 17:14 Sodium Chloride 1,000 ml @ 100 mls/hr Q10H IV 12/17/17 12:30 12/17/17 21:53 (NS Flush) 2 ml UNSCH PRN IV FLUSH 12/17/17 11:30 (NS Flush) 2 ml BID IV FLUSH 12/17/17 21:00 12/18/17 22:34 (Tylenol) 650 mg Q4H PRN PO 12/17/17 11:30 (Tylenol) 650 mg Q6H PRN PO 12/17/17 11:30 (Ultram) 50 mg Q4H PRN PO 12/17/17 11:30 (Narcan Inj) 0.4 mg UNSCH PRN IV PUSH 12/17/17 11:30 (Michelle-Colace) 1 tab BID PO 12/17/17 21:00 12/18/17 22:34 (Duoneb Neb) 1 ampule Q2HR NEB PRN NEB 12/17/17 13:45 (Ecotrin Ec) 81 mg DAILY PO 12/17/17 20:30 12/18/17 07:29 (Diovan) 160 mg DAILY PO 12/19/17 09:30 (Ativan) 0.5 mg BID PRN PO 12/19/17 09:15 Allergies Allergies Coded Allergies Penicillins (Verified Allergy, Unknown, 12/17/17) gabapentin (Verified Allergy, Unknown, 12/17/17) lovastatin (Verified Allergy, Unknown, 12/17/17) Exam I&O / VS Vital Signs Date Time Temp Pulse Resp B/P (MAP) Pulse Ox O2 Delivery O2 Flow Rate FiO2 12/19/17 08:00 98.0 66 19 181/77 (111) 96 12/19/17 05:02 97.4 66 20 161/67 (98) 95 12/19/17 00:00 97.2 71 20 168/75 (106) 96 12/18/17 20:22 97.4 61 20 121/64 (83) 97 12/18/17 16:00 97.6 67 16 175/74 (107) 96 12/18/17 12:00 98.1 65 18 198/88 (124) 97 Exam Comments alert, oriented, speech is normal CN 2-12 normal MOTOR--5/5 BUE and BLE Objective Radiology Results MRI brain--no acute stoke is seen MRA neck--significant left carotid artery stenosis MRA brain--mild atherosclerosis without significant stenosis and no evidence of aneurysm MRI cervical spine--significant spondylosis with stenosis and spinal cord involvement Micro and Labs Laboratory Tests Test 12/18/17 11:00 White Blood Count 5.8 Red Blood Count 3.91 Hemoglobin 12.9 Hematocrit 38.7 Mean Corpuscular Volume 99.1 Mean Corpuscular Hemoglobin 33.1 Mean Corpuscular Hemoglobin Concent 33.4 Red Cell Distribution Width 14.8 Platelet Count 145 Mean Platelet Volume 7.7 Neutrophils (%) (Auto) 68.1 Lymphocytes (%) (Auto) 22.7 Monocytes (%) (Auto) 7.8 Eosinophils (%) (Auto) 1.1 Basophils (%) (Auto) 0.3 Neutrophils # (Auto) 3.9 Lymphocytes # (Auto) 1.3 Monocytes # (Auto) 0.4 Eosinophils # (Auto) 0.1 Basophils # (Auto) 0.0 CBC Comment DIFF FINAL Differential Comment Blood Urea Nitrogen 18 Creatinine 0.90 Random Glucose 122 Total Protein 6.8 Albumin 3.6 Calcium Level 8.1 Alkaline Phosphatase 62 Aspartate Amino Transf (AST/SGOT) 28 Alanine Aminotransferase (ALT/SGPT) 25 Total Bilirubin 0.6 Sodium Level 135 Potassium Level 4.0 Chloride Level 100 Carbon Dioxide Level 27.8 Anion Gap 7 Estimat Glomerular Filtration Rate 59 Jagdish Luna MD PhD Dec 19, 2017 09:37
--- NOTE | 2017-12-19 10:37 | PD.CAR.PN ---
CVT Progress Note Subjective/Hospital Course: 87-year-old female with tight left carotid artery stenosis questionably symptomatic Patient is of advanced age and this is a relative barrier to carotid endarterectomy as noted in the full consult. On the other hand patient is in full control of her faculties and has reasonably satisfactory lifestyle except for the above-noted so I believe it is quite appropriate to work patient up from the cardiac point and if the risk of surgery is not prohibitive she should be considered for carotid endarterectomy despite her age Would like to perform echo over the weekend and then see what we are going to do with the patient early next week We will discuss with neurology and cardiology specialists Full consult dictated Thanks J 12/19/2017 Patient with hemodynamically significant left internal carotid artery stenosis but waxing and waning symptoms this could be related to cervical spinal stenosis She is of advanced age with some comorbidities Based on the full workup by cardiology and cardiac echo evaluation we are to assess the risk for carotid endarterectomy in this patient Based on all of the above we will decide whether this bernal to proceed with carotid endarterectomy provided the risk and benefit ratios Agree fully with Dr. Luna's evaluation Objective: Vital Signs Date Time Temp Pulse Resp B/P (MAP) Pulse Ox O2 Delivery O2 Flow Rate FiO2 12/19/17 08:00 98.0 66 19 181/77 (111) 96 12/19/17 05:02 97.4 66 20 161/67 (98) 95 12/19/17 00:00 97.2 71 20 168/75 (106) 96 12/18/17 20:22 97.4 61 20 121/64 (83) 97 12/18/17 16:00 97.6 67 16 175/74 (107) 96 12/18/17 12:00 98.1 65 18 198/88 (124) 97 Result Diagram: 12/18/17 1100 12/18/17 1100 Deisy Lester MD Dec 19, 2017 10:37
[2017-12-19] MEDS: NADOLOL 40 MG TAB PO SCH (11:19)
[2017-12-19] MEDS: ASPIRIN EC 81 MG TABEC PO SCH (11:19)
[2017-12-19] MEDS: APIXABAN 2.5 MG TABLET PO SCH (11:19)
[2017-12-19] MEDS: DOCUSATE SODIUM 50 MG/SENNA 8.6 MG TAB PO SCH ×2 (11:19→21:00)
[2017-12-19] MEDS: SODIUM CHLORIDE 0.9% FLUSH 10 ML FLUSH IV FLUSH SCH ×2 (11:20→21:33)
--- NOTE | 2017-12-19 11:42 | HHI.PR ---
Subjective Remarks The patient was unsure if she wanted to pursue surgery. She said that she would like to take a shower. She was wondering if she could have her anxiety medication. She wanted to make sure we notified certain contacts prior to any surgery. Objective Vitals Vital Signs Date Time Temp Pulse Resp B/P (MAP) Pulse Ox O2 Delivery O2 Flow Rate FiO2 12/19/17 08:00 98.0 66 19 181/77 (111) 96 12/19/17 05:02 97.4 66 20 161/67 (98) 95 12/19/17 00:00 97.2 71 20 168/75 (106) 96 12/18/17 20:22 97.4 61 20 121/64 (83) 97 12/18/17 16:00 97.6 67 16 175/74 (107) 96 12/18/17 12:00 98.1 65 18 198/88 (124) 97 I/O 12/18/17 12/18/17 12/18/17 12/19/17 12/19/17 12/19/17 07:00 15:00 23:00 07:00 15:00 23:00 Intake Total 360 ml 120 ml Balance 360 ml 120 ml Intake Oral 360 ml 120 ml # Voids 2 4 2 # Bowel Movements 0 Result Diagram: 12/18/17 1100 12/18/17 1100 Imaging Last Impressions Neck Magnetic Resonance Angiography 12/18/17 0000 Signed Impressions: Service Date/Time: Monday, December 18, 2017 07:48 - CONCLUSION: Hemodynamically significant stenosis of the left distal common carotid artery at the bifurcation with moderate atherosclerosis of the left carotid bulb. Mild left subclavian atherosclerosis is also seen as above. Coleman Santiago MD Head Magnetic Resonance Angiography 12/18/17 0000 Signed Impressions: Service Date/Time: Monday, December 18, 2017 07:48 - CONCLUSION: Mild atherosclerosis. No high grade stenosis or aneurysm. Coleman Santiago MD Cervical Spine MRI 12/18/17 0000 Signed Impressions: Service Date/Time: Monday, December 18, 2017 07:48 - CONCLUSION: Degenerative changes and post surgical changes are noted as above. Coleman Santiago MD Brain MRI 12/18/17 0000 Signed Impressions: Service Date/Time: Monday, December 18, 2017 07:48 - CONCLUSION: Mild atrophy and white matter disease. Coleman Santiago MD Head CT 12/17/17824 Signed Impressions: Service Date/Time: Sunday, December 17, 2017 08:41 - CONCLUSION: No acute disease. Porfirio Ferreira MD Chest X-Ray 12/17/17824 Signed Impressions: Service Date/Time: Sunday, December 17, 2017 08:56 - CONCLUSION: Normal examination. Mild hyperinflation. Porfirio Ferreira MD Cervical Spine CT 12/17/17 Signed Impressions: Service Date/Time: Monday, December 18, 2017 08:44 - CONCLUSION: Pgwrgfah-te-zofdnj degenerative changes and postsurgical changes noted. Coleman Santiago MD Carotid Artery Ultrasound 12/17/17 Signed Impressions: Service Date/Time: Sunday, December 17, 2017 14:26 - CONCLUSION: Potential stenosis bilaterally in the bifurcation on the right and proximally on the left. CT angiography of the cervicobrachial arch and carotid arteries is recommended for further evaluation if clinically indicated. Juvenal Adam MD Objective Remarks GENERAL: This is a well-nourished, well-developed patient, in no apparent distress. SKIN: No rashes, ecchymoses or lesions. Cool and dry. HEAD: Atraumatic. Normocephalic. No temporal or scalp tenderness. EYES: Pupils equal round and reactive. Extraocular motions intact. No scleral icterus. No injection or drainage. ENT: Nose without bleeding, purulent drainage or septal hematoma. Throat without erythema, tonsillar hypertrophy or exudate. Uvula midline. Airway patent. NECK: Trachea midline. No JVD or lymphadenopathy. Supple, nontender, no meningeal signs. CARDIOVASCULAR: Irregularly irregular rhythm. RESPIRATORY: Clear to auscultation. Breath sounds equal bilaterally. No wheezes , rales, or rhonchi. GASTROINTESTINAL: Abdomen soft, non-tender, nondistended. No hepato-splenomegaly , or palpable masses. No guarding. MUSCULOSKELETAL: Extremities without clubbing, cyanosis, or edema. No joint tenderness, effusion, or edema noted. NEUROLOGICAL: Awake and alert. Cranial nerves II through XII intact. Motor 5/5 in upper extremities, 4/5 in lower extremities. PSYCH: Mood and affect appropriate. Medications and IVs Current Medications Medications (Trade) Dose Ordered Sig/Silviano Route Start Time Stop Time Status Last Admin (Zyloprim) 300 mg DAILY PO 12/18/17 09:00 12/18/17 07:29 (Eliquis) 2.5 mg BID PO 12/17/17 12:30 12/19/17 11:19 Patient Own Medication PT OWN MED: SIMVASTA... HS PO 12/17/17 21:00 Future Hold (Corgard) 80 mg DAILY PO 12/17/17 13:00 12/19/17 11:19 (Catapres) 0.1 mg Q6H PRN PO 12/17/17 11:30 12/18/17 17:14 Sodium Chloride 1,000 ml @ 100 mls/hr Q10H IV 12/17/17 12:30 12/17/17 21:53 (NS Flush) 2 ml UNSCH PRN IV FLUSH 12/17/17 11:30 (NS Flush) 2 ml BID IV FLUSH 12/17/17 21:00 12/19/17 11:20 (Tylenol) 650 mg Q4H PRN PO 12/17/17 11:30 (Tylenol) 650 mg Q6H PRN PO 12/17/17 11:30 (Ultram) 50 mg Q4H PRN PO 12/17/17 11:30 (Narcan Inj) 0.4 mg UNSCH PRN IV PUSH 12/17/17 11:30 (Michelle-Colace) 1 tab BID PO 12/17/17 21:00 12/19/17 11:19 (Duoneb Neb) 1 ampule Q2HR NEB PRN NEB 12/17/17 13:45 (Ecotrin Ec) 81 mg DAILY PO 12/17/17 20:30 12/19/17 11:19 (Diovan) 160 mg DAILY PO 12/19/17 09:30 (Ativan) 0.5 mg BID PRN PO 12/19/17 09:15 12/19/17 11:19 A/P Assessment and Plan Weakness The pt endorses episodes where she feels strange and has no control over her body. She said she follows with her PCP and recently had a normal MRI. She also saw cardiology who did not believe her symptoms were of cardiac origin. She has lower extremity weakness but does have neuropathy. She also endorses dysarthria. She has a history of CVA. Bilateral carotid stenosis as seen on MRA. Appreciate neurology and vascular surgery consults. EEG normal. - rule out cervical spinal stenosis per neuro. Neurosurgery consult placed. - neuro checks. - PT/OT/ST. - continue Eliquis and ASA. - check an echo. Hypertensive urgency BP still uncontrolled. - resume home meds. Adjust regimen as needed. Increase valsartan. - clonidine as needed. Dysphagia The pt endorses problems with swallowing. She has a history of Zenker's diverticulum. - pureed diet per ST. Hyponatremia Sodium improving. - follow BMP. - ADAT. Hyperglycemia A1c 6.1%. - lifestyle modifications. PPx: Niko David DO Dec 19, 2017 11:42
--- NOTE | 2017-12-19 11:46 | ECHRPT ---
Indication: REPEATED TIA POSSIBLE EMBOLI CONCLUSIONS The left ventricular systolic function is normal with an estimated ejection fraction in the range of 55-60%. Tklrj-bq-txke mitral valve regurgitation. There is trace tricuspid valve regurgitation. BP: / HR: Rhythm: MEASUREMENTS (Male / Female) Normal Values Technical Quality: 2D ECHO LV Diastolic Diameter PLAX 4.1 cm 4.2 - 5.9 / 3.9 - 5.3 cm LV Systolic Diameter PLAX 3.1 cm IVS Diastolic Thickness 0.6 cm 0.6 - 1.0 / 0.6 - 0.9 cm LVPW Diastolic Thickness 0.5 cm 0.6 - 1.0 / 0.6 - 0.9 cm LV Relative Wall Thickness 0.3 RV Internal Dim ED PLAX 2.0 cm LA Systolic Diameter LX 3.0 cm 3.0 - 4.0 / 2.7 - 3.8 cm M-MODE Aortic Root Diameter MM 3.0 cm AV Cusp Separation MM 1.6 cm DOPPLER TR Peak Velocity 290.0 cm/s TR Peak Gradient 33.6 mmHg Right Atrial Pressure 10.0 mmHg Pulmonary Artery Systolic Pressu 43.6 mmHg Right Ventricular Systolic Press 43.6 mmHg FINDINGS LEFT VENTRICLE Normal left ventricular size. Wall thickness is normal. The left ventricular systolic function is normal with an estimated ejection fraction in the range of 55-60%. RIGHT VENTRICLE Normal right ventricular size and systolic function. LEFT ATRIUM The left atrial size is mildly dilated. RIGHT ATRIUM The right atrial size is normal. ATRIAL SEPTUM Normal atrial septal thickness AORTA The aortic root and proximal ascending aorta are normal in size on limited imaging. MITRAL VALVE Mitral annular calcification is present. Thdks-kq-inle mitral valve regurgitation. No mitral valve stenosis. AORTIC VALVE Trileaflet aortic valve. No aortic valve stenosis or regurgitation. TRICUSPID VALVE Grossly normal tricuspid valve There is trace tricuspid valve regurgitation. The estimated pulmonary arterial pressure is 44 mmHg. PULMONARY VALVE No pulmonary valve regurgitation or stenosis. VESSELS The inferior vena cava is normal in size. PERICARDIUM No pericardial effusion. Rell Pool DO (Electronically Signed) Final Date:19 December 2017 11:45
--- NOTE | 2017-12-19 12:42 | RADRPT ---
EXAM DATE/TIME: 12/19/2017 11:46 [facility] COMPARISON: CT CERVICAL SPINE W/O CONTRAST, December 18, 2017, 8:44. INDICATIONS : Evaluate for instability, increased weakness. MEDICAL HISTORY : Hypertension. Gastroesophageal reflux disease. A-Fib. SURGICAL HISTORY : Hysterectomy. ENCOUNTER: Subsequent ACUITY: 3 days PAIN SCORE: 0/10 LOCATION: Cervical spine. FINDINGS: Flexion and extension views of the cervical spine were performed. The alignment of the cervical vert ebral bodies is maintained in flexion and extension and there is no evidence of subluxation. The pre vertebral soft tissues are normal in thickness. Grade 1 anterolisthesis of C4 on C5, and slight retro listhesis of C6 on C7, anterolisthesis of C7 on T1 noted. This is stable with flexion and extension. CONCLUSION: Result translational instability. Anterolisthesis and retrolisthesis as described above is stable wit h flexion and extension. Severe degenerative changes. Coleman Santiago MD on December 19, 2017 at 12:38 Board Certified Radiologist. This report was verified electronically.
[2017-12-19 13:00] VITALS: BP 162/68; PULSE 70; RESP 18; TEMP 98.1; O2SAT 96
--- NOTE | 2017-12-19 15:06 | MB ---
cc: Moises ROACH DATE: 12/19/2017 CHIEF COMPLAINT: Generalized weakness. HISTORY OF PRESENT ILLNESS: This 87-year-old female patient was admitted because of generalized weakness. She has undergone evaluation in the hospital and was evaluated by a neurologist, who ordered an MRI of the cervical spine. MRI of the cervical spine was abnormal and because of this, neurosurgery consult was placed. The patient reports that intermittently, she has numbness and tingling in her arms and legs, especially while sitting up to eat. She reports that this has been going on for several years and also gives history of neuropathy. PAST MEDICAL HISTORY: Remarkable for history of atrial fibrillation, history of past stroke, coronary artery disease, diminished hearing, gout, hypertension, stage III kidney disease, mitral valve regurgitation, first degree AV block and neuropathy. PAST SURGICAL HISTORY: Includes a hysterectomy, cataract surgery and hemorrhoid surgery. SOCIAL HISTORY: She denies any use of alcohol, tobacco, or substance abuse. ALLERGIES: INCLUDE PENICILLIN, GABAPENTIN, LOVASTATIN. PRESENT MEDICATIONS: Include valsartan, tramadol, simvastatin, Nadolol, lorazepam, Atrovent, Eliquis and allopurinol. REVIEW OF SYSTEMS: Pertains to the above medical problems. PHYSICAL EXAMINATION: VITAL SIGNS: Shows a blood pressure of 162/68, temperature of 98.1, pulse of 70, respiratory rate of 18, a pulse oximetry of 96. GENERAL: Shows a thin female who is pleasant, in no distress. HEENT: Unremarkable. NECK: Supple. Good carotid pulses bilaterally. CHEST: Symmetric. LUNGS: Clear. HEART: Shows a regular rhythm with normal heart sounds. ABDOMEN: Soft and nontender. EXTREMITIES: Clear. NEUROLOGIC: The patient is alert and awake. She has a fluent speech. She is oriented x 3. She follows commands well. Her affect appears to be normal. Cranial nerves 2-12 are intact except for decreased hearing . Motor exam is 5+/5. There does not appear to be any increased tone in the upper or lower extremities. Deep tendon reflexes are 1+ at all sites and trace at the ankles. She appears to have a bilateral Babinski and negative Reyna's bilaterally. DIAGNOSTIC DATA:: Review of an MRI of the cervical spine appears to show significant degenerative changes with what appears to be spinal stenosis at various levels with compression of the spinal cord, especially from the level of C4-5 and C5-6. There appears to be also anterolisthesis of C4 on C5. 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 There does not appear to be an overt clinical myelopathy in this patient at the present time. Would recommend at the present time reevaluation as an outpatient since she is planning to have imminent carotid surgery. I have discussed this with the patient, and she should be followed as an outpatient If she were to worsen, she may need to have intervention, but otherwise, should be treated in a conservative fashion at the present time. Moises GUILLEN/RASHID , 02:47 PM , 03:05 PM MTDD
[2017-12-19 16:00] VITALS: BP 148/65; PULSE 96; RESP 18; TEMP 98.6; O2SAT 96
[2017-12-19] MEDS ORDERED: ceFAZolin 2 GM PREMIX 50 ML IV SCH (16:00)
[2017-12-19 20:45] VITALS: BP 152/58; PULSE 64; RESP 18; TEMP 96.3; O2SAT 97
[2017-12-19] MEDS ORDERED: SODIUM CHLORID 0.9% 500 ML IV PRN (20:45)
[2017-12-19] MEDS ORDERED: CHLORHEXIDINE GLUCONATE 2 % 1 PACK (2 CLOTHS) TOPICAL PRN (20:45)
[2017-12-19] MEDS ORDERED: POVIDONE IODINE 5% (ANTISEPSIS KIT) 4 APPLICATIONS EACH NARE PRN (20:45)
[2017-12-19] MEDS ORDERED: LACTATED RINGER'S 1000 ML IV PRN (20:45)
[2017-12-19] MEDS ORDERED: METOPROLOL TARTRATE 25 MG TAB PO PRN (20:45)
[2017-12-19 21:48] LABS: HEMATOCRIT 34.5 % (35.0-46.0); HEMOGLOBIN 11.7 GM/DL (11.6-15.3); MEAN CELL VOLUME 98.3 FL (80.0-100.0); MEAN CORPUSCULAR HEMOGLOBIN 33.4 PG (27.0-34.0); MEAN PLATELET VOLUME 7.9 FL (7.0-11.0); PLATELET COUNT 146 TH/MM3 (150-450); RED BLOOD COUNT 3.51 MIL/MM3 (4.00-5.30); RED CELL DISTRIBUTION WIDTH 14.9 % (11.6-17.2); WHITE BLOOD COUNT 5.4 TH/MM3 (4.0-11.0)
[2017-12-19 22:20] LABS: BICARBONATE 31.7 MEQ/L (21.0-32.0); CALCIUM 8.8 MG/DL (8.5-10.1); CREATININE 0.83 MG/DL (0.50-1.00)
[2017-12-20] VITALS (13 sets, daily range): BP systolic 81–192; BP diastolic 21–83; PULSE 55–69; RESP 16–18; TEMP 97.3–98.2; O2SAT 95–99
[2017-12-20 06:09] LABS: PROTHROMBIN TIME - PATIENT 10.1 SEC (9.8-11.6)
[2017-12-20] MEDS: SODIUM CHLOR 0.9% 1000 ML INJ 1,000 ML IV SCH ×2 (08:16→19:00)
[2017-12-20] MEDS: VALSARTAN 160 MG TAB PO SCH (08:16)
[2017-12-20] MEDS: SODIUM CHLORIDE 0.9% FLUSH 10 ML FLUSH IV FLUSH SCH ×2 (08:16→21:00)
[2017-12-20] MEDS: DOCUSATE SODIUM 50 MG/SENNA 8.6 MG TAB PO SCH ×2 (08:16→20:50)
[2017-12-20] MEDS: LORazepam 0.5 MG TAB PO PRN ×2 (08:16→20:50)
[2017-12-20] MEDS: NADOLOL 40 MG TAB PO SCH (08:16)
[2017-12-20] MEDS: ALLOPURINOL 300 MG TAB PO SCH (08:17)
[2017-12-20] MEDS ORDERED: HEPARIN SODIUM - SQ 10,000 UNITS/ML VIAL ONE (08:25)
[2017-12-20] MEDS ORDERED: HEPARIN SODIUM - IV 10,000 UNITS/10 ML VIAL ONE (08:25)
[2017-12-20] MEDS ORDERED: LIDOCAINE HCL 1% 50 ML VIAL ONE (08:26)
[2017-12-20] MEDS ORDERED: PROTAMINE SULFATE 50 MG/5 ML VIAL ONE (08:28)
[2017-12-20] MEDS: ASPIRIN EC 81 MG TABEC PO SCH (09:00)
--- NOTE | 2017-12-20 09:24 | HHI.PR ---
Subjective Remarks The patient was resting comfortably in bed. She was anticipating her procedure this morning. She said she was breathing comfortably. She said she was not anxious. Her friend arrived and their questions were answered. Discussed with nursing. Objective Vitals Vital Signs Date Time Temp Pulse Resp B/P (MAP) Pulse Ox O2 Delivery O2 Flow Rate FiO2 12/20/17 08:13 62 12/20/17 08:00 98.2 57 16 192/83 (119) 96 12/20/17 07:42 59 12/20/17 07:40 Room Air 12/20/17 04:45 97.3 67 17 143/63 (89) 96 12/20/17 01:30 97.8 69 18 148/70 (96) 95 172/72 (105) 116/60 (78) 12/19/17 20:45 96.3 64 18 152/58 (89) 97 12/19/17 16:00 98.6 96 18 148/65 (92) 96 12/19/17 13:00 98.1 70 18 162/68 (99) 96 I/O 12/19/17 12/19/17 12/19/17 12/20/17 12/20/17 12/20/17 07:00 15:00 23:00 07:00 15:00 23:00 Intake Total 120 ml Balance 120 ml Intake Oral 120 ml # Voids 2 4 # Bowel Movements 1 Result Diagram: 12/19/17211012/19/172110 Imaging Last Impressions Cervical Spine X-Ray 12/19/17 0000 Signed Impressions: Service Date/Time: Tuesday, December 19, 2017 11:46 - CONCLUSION: Result translational instability. Anterolisthesis and retrolisthesis as described above is stable with flexion and extension. Severe degenerative changes. Coleman Santiago MD Neck Magnetic Resonance Angiography 12/18/17 0000 Signed Impressions: Service Date/Time: Monday, December 18, 2017 07:48 - CONCLUSION: Hemodynamically significant stenosis of the left distal common carotid artery at the bifurcation with moderate atherosclerosis of the left carotid bulb. Mild left subclavian atherosclerosis is also seen as above. Coleman Santiago MD Head Magnetic Resonance Angiography 12/18/17 0000 Signed Impressions: Service Date/Time: Monday, December 18, 2017 07:48 - CONCLUSION: Mild atherosclerosis. No high grade stenosis or aneurysm. Coleman Santiago MD Cervical Spine MRI 12/18/17 Signed Impressions: Service Date/Time: Monday, December 18, 2017 07:48 - CONCLUSION: Degenerative changes and post surgical changes are noted as above. Coleman Santiago MD Brain MRI 12/18/17 Signed Impressions: Service Date/Time: Monday, December 18, 2017 07:48 - CONCLUSION: Mild atrophy and white matter disease. Coleman Santiago MD Head CT 12/17/17824 Signed Impressions: Service Date/Time: Sunday, December 17, 2017 08:41 - CONCLUSION: No acute disease. Porfirio Ferreira MD Chest X-Ray 12/17/17824 Signed Impressions: Service Date/Time: Sunday, December 17, 2017 08:56 - CONCLUSION: Normal examination. Mild hyperinflation. Porfirio Ferreira MD Cervical Spine CT 12/17/17 Signed Impressions: Service Date/Time: Monday, December 18, 2017 08:44 - CONCLUSION: Dxkrznix-yn-ydsrpn degenerative changes and postsurgical changes noted. Coleman Santiago MD Carotid Artery Ultrasound 12/17/17 Signed Impressions: Service Date/Time: Sunday, December 17, 2017 14:26 - CONCLUSION: Potential stenosis bilaterally in the bifurcation on the right and proximally on the left. CT angiography of the cervicobrachial arch and carotid arteries is recommended for further evaluation if clinically indicated. Juvenal Adam MD Objective Remarks GENERAL: This is a well-nourished, well-developed patient, in no apparent distress. SKIN: No rashes, ecchymoses or lesions. Cool and dry. HEAD: Atraumatic. Normocephalic. No temporal or scalp tenderness. EYES: Pupils equal round and reactive. Extraocular motions intact. No scleral icterus. No injection or drainage. ENT: Nose without bleeding, purulent drainage or septal hematoma. Throat without erythema, tonsillar hypertrophy or exudate. Uvula midline. Airway patent. NECK: Trachea midline. No JVD or lymphadenopathy. Supple, nontender, no meningeal signs. CARDIOVASCULAR: Irregularly irregular rhythm. RESPIRATORY: Clear to auscultation. Breath sounds equal bilaterally. No wheezes , rales, or rhonchi. GASTROINTESTINAL: Abdomen soft, non-tender, nondistended. No hepato-splenomegaly , or palpable masses. No guarding. MUSCULOSKELETAL: Extremities without clubbing, cyanosis, or edema. No joint tenderness, effusion, or edema noted. NEUROLOGICAL: Awake and alert. Cranial nerves II through XII intact. Motor 5/5 in upper extremities, 4/5 in lower extremities. PSYCH: Mood and affect appropriate. Medications and IVs Current Medications Medications (Trade) Dose Ordered Sig/Silviano Route Start Time Stop Time Status Last Admin (Zyloprim) 300 mg DAILY PO 12/18/17 09:00 12/18/17 07:29 (Eliquis) 2.5 mg BID PO 12/17/17 12:30 Future Hold 12/19/17 11:19 Patient Own Medication PT OWN MED: SIMVASTA... HS PO 12/17/17 21:00 Future Hold (Corgard) 80 mg DAILY PO 12/17/17 13:00 12/20/17 08:16 (Catapres) 0.1 mg Q6H PRN PO 12/17/17 11:30 12/18/17 17:14 Sodium Chloride 1,000 ml @ 100 mls/hr Q10H IV 12/17/17 12:30 12/20/17 08:16 (NS Flush) 2 ml UNSCH PRN IV FLUSH 12/17/17 11:30 (NS Flush) 2 ml BID IV FLUSH 12/17/17 21:00 12/19/17 21:33 (Tylenol) 650 mg Q4H PRN PO 12/17/17 11:30 (Tylenol) 650 mg Q6H PRN PO 12/17/17 11:30 (Ultram) 50 mg Q4H PRN PO 12/17/17 11:30 (Narcan Inj) 0.4 mg UNSCH PRN IV PUSH 12/17/17 11:30 (Michelle-Colace) 1 tab BID PO 12/17/17 21:00 12/19/17 11:19 (Duoneb Neb) 1 ampule Q2HR NEB PRN NEB 12/17/17 13:45 (Ecotrin Ec) 81 mg DAILY PO 12/17/17 20:30 12/19/17 11:19 (Diovan) 160 mg DAILY PO 4/29/18 09:30 12/20/17 08:16 (Ativan) 0.5 mg BID PRN PO 12/19/17 09:15 12/20/17 08:16 Cefazolin Sodium/ Dextrose 50 ml @ 100 mls/hr RN MANAGED CARE IV 12/19/17 16:00 12/22/17 15:59 Lactated Ringer's 1,000 ml @ 30 mls/hr Q24H PRN IV 12/19/17 20:45 12/22/17 20:44 Sodium Chloride 500 ml @ 30 mls/hr [id number] PRN IV 12/19/17 20:45 12/22/17 20:44 (Lopressor) 25 mg RN MANAGED CARE PRN PO 12/19/17 20:45 12/22/17 20:44 (Betadine 5% Antisepsis Kit) 1 applic RN MANAGED CARE PRN EACH NARE 12/19/17 20:45 12/22/17 20:44 (Chlorhexidine 2% Cloth) 3 pack RN MANAGED CARE PRN TOPICAL 12/19/17 20:45 12/22/17 20:44 A/P Assessment and Plan Weakness The pt endorses episodes where she feels strange and has no control over her body. She said she follows with her PCP and recently had a normal MRI. She also saw cardiology who did not believe her symptoms were of cardiac origin. She has lower extremity weakness but does have neuropathy. She also endorses dysarthria. She has a history of CVA. Bilateral carotid stenosis as seen on MRA , worse on the left. Appreciate neurology and vascular surgery consults. EEG normal. Neurosurgery consult for cervical stenosis appreciated. - neuro checks. - PT/OT/ST. - continue Eliquis and ASA. Hold for surgery. Left CEA scheduled 12/20. - oxygen as needed. - incentive spirometry. Hypertensive urgency BP still uncontrolled. - resumed home meds. Adjust regimen as needed. Increased valsartan. - clonidine as needed. Dysphagia The pt endorses problems with swallowing. She has a history of Zenker's diverticulum. - pureed diet per ST. NPO for surgery. Hyponatremia Sodium improving. - follow BMP. Hyperglycemia A1c 6.1%. - lifestyle modifications. PPx: Eliquis on hold Niko Chicas DO Dec 20, 2017 09:24
[2017-12-20] MEDS ORDERED: ACETAMINOPHEN 1000 MG/100 ML 100 ML IV ONE (11:04)
[2017-12-20] MEDS ORDERED: LIDOCAINE HCL 1% PF 5 ML SYRINGE OTHER ONE (12:00)
[2017-12-20] MEDS ORDERED: PHENYLEPHRINE HCL 10 MG/ML VIAL IV ONE (12:00)
[2017-12-20] MEDS ORDERED: NEOSTIGMINE 5 MG/5 ML SYRINGE IV PUSH ONE (12:00)
[2017-12-20] MEDS ORDERED: NORMOSOL R INJ 1,000 ML IV ONE (12:00)
[2017-12-20] MEDS ORDERED: PHENYLEPH/NS 1000 MCG/10 ML SYR IV ONE (12:00)
[2017-12-20] MEDS ORDERED: ONDANSETRON HCL 4 MG/2 ML VIAL IV ONE (12:00)
[2017-12-20] MEDS ORDERED: ROCURONIUM INJ 50 MG/5 ML SYRINGE IV PUSH ONE (12:00)
[2017-12-20] MEDS ORDERED: DEXAMETHASONE SOD PHOS 4 MG/ML VIAL IV ONE (12:00)
[2017-12-20] MEDS ORDERED: SODIUM CHLORID 0.9% 500 ML INJ 500 ML IV ONE ×2 (12:00→19:45)
[2017-12-20] MEDS ORDERED: GLYCOPYRROLATE 1 MG/5 ML SYRINGE IV PUSH ONE (12:00)
[2017-12-20] MEDS ORDERED: PROPOFOL 200 MG/20 ML AMP IV ONE (12:00)
[2017-12-20] MEDS ORDERED: SODIUM CHLOR 0.9% 250 ML INJ 250 ML IV ONE (12:00)
[2017-12-20] MEDS ORDERED: oxyCODONE/ACETAMINOPHEN 5 MG/325 MG TAB PO PRN (14:00)
[2017-12-20] MEDS ORDERED: niCARdipine INJ 25 MG in SODIUM CHLOR 0.9% 250 ML INJ 240 ML IV PRN (14:00)
[2017-12-20] MEDS ORDERED: MORPHINE SULFATE 2 MG/ML SYRINGE IM PRN (14:00)
--- NOTE | 2017-12-20 14:40 | MP ---
cc: Deisy Lester MD DATE OF OPERATION: 12/20/2017 PREOPERATIVE DIAGNOSIS: Tight left internal carotid artery stenosis, transient ischemic attack. POSTOPERATIVE DIAGNOSIS: About 90% left internal carotid artery stenosis, transient ischemic attack. OPERATIVE PROCEDURE: Left carotid endarterectomy. SURGEON: Deisy Lester MD ANESTHESIA: General. ESTIMATED BLOOD LOSS: 50 mL. DESCRIPTION OF PROCEDURE:: The patient prepped and draped in usual fashion. Left presternocleidomastoid incision made, deepened down through platysma onto the carotid sheath. The jugular vein was dissected from the carotid artery where it sort of stuck to it. Facial vein was divided between 2-0 silks and ligated. Carotid exposed. Common carotid, internal, external carotid arteries are now dissected with sharp dissection. Hypoglossal nerves carefully identified and preserved. Weitlaner retractor was placed. The umbilical tapes were placed around common, internal and external carotid arteries and then loosely, Yang's placed on it. The patient was given 5000 units of heparin and then the common carotid is clamped with a DeBakey clamp and internal carotid with curved bulldog. Vessel was opened longitudinally with Remy scissors, an [place] shunt immediately placed. The patient has a huge plaque, which nearly totally occupies the vessel and to be honest, I do not see where the opening is for the blood flow in this vessel. The plaque is measuring about 2 cm in length and occupies most of the common carotid artery going into the internal carotid artery. It was so hard, I could not even open it with scissors, so now in the media plane, the whole plaque was dissected free with a Arnett dissector and then removed. The mucosa on the internal carotid artery peeled off nicely and then the common carotid artery is undermined with a Arnett dissector. Specimen is sent off. The area irrigated with copious amounts of heparinized saline. Small debris removed with forceps and . The patient has a fairly large carotid and therefore, there is no need to put a patch. Vessel is repaired with running 6-0 Prolene, and prior to completion of the repair, the [place] shunt is removed and the blood flow reestablished in the usual order and fashion preventing internal carotid embolization. Dopplerable pulses is checked, is very brisk. Incision is irrigated with saline. A 7 flat PADMINI placed over the vessel and incision closed with 2-0 Vicryl in layers and 4-0 Monocryl for the skin. The patient taken out of the operating room in a stable condition. At the end the procedure, patient moves all 4 extremities, is neurologically fully intact. MD RICHARD Agosto/RASHID , 02:11 PM , 02:39 PM
[2017-12-20 20:22] LABS: HEMATOCRIT 30.6 % (35.0-46.0); HEMOGLOBIN 10.5 GM/DL (11.6-15.3)
[2017-12-20] MEDS: APIXABAN 2.5 MG TABLET PO SCH (21:00)
[2017-12-20] MEDS ORDERED: MORPHINE SULFATE 4 MG/ML INJ IM PRN (21:00)
[2017-12-20] MEDS: ACETAMINOPHEN 325 MG TAB PO PRN (22:29)
[2017-12-21 03:00] VITALS: BP_SYST 103; BP_SYST 91; BP_DIAS 42; BP_DIAS 53; PULSE 56; RESP 18; TEMP 98.3; O2SAT 99
[2017-12-21 07:00] VITALS: BP_SYST 148; BP_DIAS 49; BP_DIAS 54; PULSE 72; RESP 18; TEMP 98.7; O2SAT 99
[2017-12-21 08:04] VITALS: O2SAT 99
[2017-12-21] MEDS ORDERED: APIXABAN 2.5 MG TABLET PO SCH (09:00)
[2017-12-21] MEDS: DOCUSATE SODIUM 50 MG/SENNA 8.6 MG TAB PO SCH ×2 (09:32→21:21)
[2017-12-21] MEDS: ALLOPURINOL 300 MG TAB PO SCH (09:32)
[2017-12-21] MEDS: VALSARTAN 160 MG TAB PO SCH (09:32)
[2017-12-21] MEDS: APIXABAN 2.5 MG TABLET PO SCH ×2 (09:33→21:21)
[2017-12-21] MEDS: SODIUM CHLORIDE 0.9% FLUSH 10 ML FLUSH IV FLUSH SCH ×2 (09:33→21:00)
[2017-12-21] MEDS: SODIUM CHLOR 0.9% 1000 ML INJ 1,000 ML IV SCH (09:36)
[2017-12-21] MEDS: NADOLOL 40 MG TAB PO SCH (10:38)
[2017-12-21] MEDS: LORazepam 0.5 MG TAB PO PRN ×2 (10:40→21:20)
[2017-12-21 11:00] VITALS: BP_SYST 161; BP_SYST 164; BP_DIAS 61; BP_DIAS 75; PULSE 78; RESP 20; TEMP 98.4; O2SAT 94
[2017-12-21] MEDS: ACETAMINOPHEN 325 MG TAB PO PRN ×2 (14:51→21:21)
[2017-12-21 15:00] VITALS: BP 167/81; PULSE 74; RESP 20; TEMP 98.3; O2SAT 99
--- NOTE | 2017-12-21 15:52 | HHI.PR ---
Subjective Remarks Patient had left carotid endarterectomy yesterday December 20 tolerated well Blood pressure is borderline Seen in the CVICU Needs physical therapy and Occupational Therapy tighter blood pressure control lives alone and will need placement at SNF At discharge We will consult case management and await [employer] approval Objective Vitals Vital Signs Date Time Temp Pulse Resp B/P (MAP) Pulse Ox O2 Delivery O2 Flow Rate FiO2 12/21/17 15:00 74 12/21/17 15:00 98.3 74 20 167/81 (109) 99 Arterial Line 12/21/17 15:00 99 Nasal Cannula 2.00 12/21/17 11:00 78 12/21/17 11:00 96 Nasal Cannula 2.00 12/21/17 11:00 98.4 78 20 161/75 (103) 94 164/61 (95) 12/21/17 08:04 99 Nasal Cannula 3.00 12/21/17 07:00 98.7 72 18 148/54 (85) 99 148/49 (82) 12/21/17 07:00 72 12/21/17 07:00 99 Nasal Cannula 2.00 12/21/17 03:00 56 12/21/17 03:00 98.3 56 18 103/42 (62) 99 91/53 (66) 12/21/17 03:00 99 Nasal Cannula 2.00 12/21/17 02:04 18 12/20/17 23:29 18 12/20/17 23:00 97.8 58 18 97/44 (61) 99 99/39 (59) 12/20/17 23:00 99 Nasal Cannula 2.00 12/20/17 23:00 55 12/20/17 22:30 99 Nasal Cannula 3.00 12/20/17 19:00 97.8 58 18 101/46 (64) 99 81/21 (41) 12/20/17 19:00 58 12/20/17 19:00 99 Nasal Cannula 3.00 12/20/17 18:00 60 16 107/39 (61) 98 100/39 (59) 12/20/17 17:00 55 16 136/72 (93) 98 138/71 (93) 12/20/17 16:30 57 16 122/70 (87) 98 132/44 (73) 12/20/17 16:00 56 16 121/50 (73) 99 143/48 (79) I/O 12/20/17 12/20/17 12/20/17 12/21/17 12/21/17 12/21/17 07:00 15:00 23:00 07:00 15:00 23:00 Intake Total 100 ml 480 ml 1925 ml 385 ml Output Total 210 ml 340 ml 315 ml Balance -110 ml 140 ml 1610 ml 385 ml Intake Oral 480 ml 120 ml IV Total 100 ml 1805 ml 385 ml Output Urine Total 200 ml 235 ml 255 ml Drainage Total 10 ml 105 ml 60 ml Result Diagram: 12/20/17 1900 12/19/171 Other Results Laboratory Tests Test 12/19/17 21:11 12/20/17 05:40 12/20/17 19:00 White Blood Count 5.4 TH/MM3 Red Blood Count 3.51 MIL/MM3 Hemoglobin 11.7 GM/DL 10.5 GM/DL Hematocrit 34.5 % 30.6 % Mean Corpuscular Volume 98.3 FL Mean Corpuscular Hemoglobin 33.4 PG Mean Corpuscular Hemoglobin Concent 34.0 % Red Cell Distribution Width 14.9 % Platelet Count 146 TH/MM3 Mean Platelet Volume 7.9 FL Blood Urea Nitrogen 22 MG/DL Creatinine 0.83 MG/DL Random Glucose 121 MG/DL Calcium Level 8.8 MG/DL Sodium Level 134 MEQ/L Potassium Level 3.8 MEQ/L Chloride Level 96 MEQ/L Carbon Dioxide Level 31.7 MEQ/L Anion Gap 6 MEQ/L Estimat Glomerular Filtration Rate 65 ML/MIN Prothrombin Time 10.1 SEC Prothromb Time International Ratio 1.0 RATIO Activated Partial Thromboplast Time 25.3 SEC Imaging Last Impressions Cervical Spine X-Ray 12/19/17 0000 Signed Impressions: Service Date/Time: Tuesday, December 19, 2017 11:46 - CONCLUSION: Result translational instability. Anterolisthesis and retrolisthesis as described above is stable with flexion and extension. Severe degenerative changes. Coleman Santiago MD Neck Magnetic Resonance Angiography 12/18/17 0000 Signed Impressions: Service Date/Time: Monday, December 18, 2017 07:48 - CONCLUSION: Hemodynamically significant stenosis of the left distal common carotid artery at the bifurcation with moderate atherosclerosis of the left carotid bulb. Mild left subclavian atherosclerosis is also seen as above. Coleman Santiago MD Head Magnetic Resonance Angiography 12/18/17 Signed Impressions: Service Date/Time: Monday, December 18, 2017 07:48 - CONCLUSION: Mild atherosclerosis. No high grade stenosis or aneurysm. Coleman Santiago MD Cervical Spine MRI 12/18/17 Signed Impressions: Service Date/Time: Monday, December 18, 2017 07:48 - CONCLUSION: Degenerative changes and post surgical changes are noted as above. Coleman Santiago MD Brain MRI 12/18/17 Signed Impressions: Service Date/Time: Monday, December 18, 2017 07:48 - CONCLUSION: Mild atrophy and white matter disease. Coleman Santiago MD Head CT 12/17/17824 Signed Impressions: Service Date/Time: Sunday, December 17, 2017 08:41 - CONCLUSION: No acute disease. Porfirio Ferreira MD Chest X-Ray 12/17/17824 Signed Impressions: Service Date/Time: Sunday, December 17, 2017 08:56 - CONCLUSION: Normal examination. Mild hyperinflation. Porfirio Ferreira MD Cervical Spine CT 12/17/17 Signed Impressions: Service Date/Time: Monday, December 18, 2017 08:44 - CONCLUSION: [id number] degenerative changes and postsurgical changes noted. Coleman Santiago MD Carotid Artery Ultrasound 12/17/17 Signed Impressions: Service Date/Time: Sunday, December 17, 2017 14:26 - CONCLUSION: Potential stenosis bilaterally in the bifurcation on the right and proximally on the left. CT angiography of the cervicobrachial arch and carotid arteries is recommended for further evaluation if clinically indicated. Juvenal Adam MD Objective Remarks GENERAL: Awake alert and oriented 3 talkative and cooperative very anxious SKIN: Warm and dry. HEAD: Atraumatic. Normocephalic. EYES: Pupils equal and round. No scleral icterus. No injection or drainage. Extraocular muscles intact glasses ENT: No nasal bleeding or discharge. Mucous membranes pink and moist. Tongue is midline NECK: Trachea midline. No JVD. Left-sided CEA dressed CARDIOVASCULAR: IRRegular rate and rhythm. S1-S2 no S3 or S4 no heave or thrill or rub or gallop RESPIRATORY: No accessory muscle use. Clear to auscultation. Breath sounds equal bilaterally. GASTROINTESTINAL: Abdomen soft, non-tender, nondistended. Hepatic and splenic margins not palpable. MUSCULOSKELETAL: Extremities without clubbing, cyanosis, or edema. No obvious deformities. NEUROLOGICAL: Awake and alert. No obvious cranial nerve deficits. Motor grossly within normal limits. 4 out of 5 muscle strength in the arms and legs. Normal speech. PSYCHIATRIC: Appropriate mood and affect; insight and judgment normal. Very anxious Procedures DATE OF OPERATION: 12/20/2017 PREOPERATIVE DIAGNOSIS: Tight left internal carotid artery stenosis, transient ischemic attack. POSTOPERATIVE DIAGNOSIS: About 90% left internal carotid artery stenosis, transient ischemic attack. OPERATIVE PROCEDURE: Left carotid endarterectomy. SURGEON: Deisy Lester MD ANESTHESIA: General. ESTIMATED BLOOD LOSS: 50 mL. DESCRIPTION OF PROCEDURE:: The patient prepped and draped in usual fashion. Left presternocleidomastoid incision made, deepened down through platysma onto the carotid sheath. The jugular vein was dissected from the carotid artery where it sort of stuck to it. Facial vein was divided between 2-0 silks and ligated. Carotid exposed. Common carotid, internal, external carotid arteries are now dissected with sharp dissection. Hypoglossal nerves carefully identified and preserved. Weitlaner retractor was placed. The umbilical tapes were placed around common, internal and external carotid arteries and then loosely, Yang's placed on it. The patient was given 5000 units of heparin and then the common carotid is clamped with a DeBakey clamp and internal carotid with curved bulldog. Vessel was opened longitudinally with Remy scissors, an [place] shunt immediately placed. The patient has a huge plaque, which nearly totally occupies the vessel and to be honest, I do not see where the opening is for the blood flow in this vessel. The plaque is measuring about 2 cm in length and occupies most of the common carotid artery going into the internal carotid artery. It was so hard, I could not even open it with scissors, so now in the media plane, the whole plaque was dissected free with a [place] dissector and then removed. The mucosa on the internal carotid artery peeled off nicely and then the common carotid artery is undermined with a [place] dissector. Specimen is sent off. The area irrigated with copious amounts of heparinized saline. Small debris removed with forceps and . The patient has a fairly large carotid and therefore, there is no need to put a patch. Vessel is repaired with running 6-0 Prolene, and prior to completion of the repair, the [place] shunt is removed and the blood flow reestablished in the usual order and fashion preventing internal carotid embolization. Dopplerable pulses is checked, is very brisk. Incision is irrigated with saline. A 7 flat PADMINI placed over the vessel and incision closed with 2-0 Vicryl in layers and 4-0 Monocryl for the skin. The patient taken out of the operating room in a stable condition. At the end the procedure, patient moves all 4 extremities, is neurologically fully intact. Deisy Lester MD Medications and IVs Current Medications Valsartan (Diovan) 80 mg ONCE ONCE PO Last administered on 12/17/17at 09:13; Start 12/17/17 at 08:30; Stop 12/17/17 at 08:31; Status DC Sodium Chloride (NS Flush) 2 ml UNSCH PRN IVF FLUSH AFTER USING IV ACCESS; Start 12/17/17 at 08:30; Stop 12/17/17 at 12:10; Status DC Allopurinol (Zyloprim) 300 mg DAILY PO Last administered on 12/21/17at 09:32; Start 12/18/17 at 09:00 Apixaban (Eliquis) 2.5 mg BID PO Last administered on 12/21/17at 09:33; Start at 12:30; Status Future hold Lorazepam (Ativan) 0.5 mg HS PRN PO ANXIETY AND/OR INSOMNIA Last administered on 12/19/17at 01:13; Start 12/17/17 at 21:00; Stop 12/19/17 at 09:03; Status DC Valsartan (Diovan) 80 mg DAILY PO Last administered on 12/18/17at 07:29; Start 12/18/17 at 09:00; Stop 12/19/17 at 08:49; Status DC Non-Formulary Medication 80 mg DAILY PO ; Start 12/18/17 at 09:00; Stop at 09:00; Status DC Patient Own Medication PT OWN MED: SIMVASTA... HS PO ; Start 12/17/17 at 21:00; Status Future Hold Nadolol (Corgard) 80 mg DAILY PO Last administered on 12/21/17at 10:38; Start at 13:00 Clonidine (Catapres) 0.1 mg Q6H PRN PO SBP>200, DBP>100 Last administered on at 17:14; Start 12/17/17 at 11:30 Sodium Chloride 1,000 ml @ 100 mls/hr Q10H IV Last administered on 12/20/17 08:16; Start 12/17/17 at 12:30; Stop 12/20/17 at 18:54; Status DC Sodium Chloride (NS Flush) 2 ml UNSCH PRN IV FLUSH FLUSH AFTER USING IV ACCESS ; Start 12/17/17 at 11:30 Sodium Chloride (NS Flush) 2 ml BID IV FLUSH Last administered on 12/21/17at 09: 33; Start 12/17/17 at 21:00 Acetaminophen (Tylenol) 650 mg Q4H PRN PO TEMP > 100.4; Start 12/17/17 at 11:30 Acetaminophen (Tylenol) 650 mg Q6H PRN PO PAIN SCALE 1 TO 2 Last administered on 12/21/17at 14:51; Start 12/17/17 at 11:30 Tramadol HCl (Ultram) 50 mg Q4H PRN PO PAIN SCALE 3 TO 10; Start 12/17/17 at 11 :30; Stop 12/20/17 at 13:54; Status DC Naloxone HCl (Narcan Inj) 0.4 mg UNSCH PRN IV PUSH SEE LABEL COMMENTS; Start at 11:30 Senna/Docusate Sodium (Michelle-Colace) 1 tab BID PO Last administered on 12/21/17 09:32; Start 12/17/17 at 21:00 Albuterol/ Ipratropium (Duoneb Neb) 1 ampule Q2HR NEB PRN NEB DYSPNEA; Start at 13:45 Aspirin (Ecotrin Ec) 81 mg DAILY PO Last administered on 12/19/17at 11:19; Start 12/17/17 at 20:30; Stop 12/20/17 at 17:11; Status DC Gadodiamide (Omniscan Pf Inj) 10 ml STK-MED ONCE IVCONTRAST Last administered on 12/17/17at 10:40; Start 12/17/17 at 10:40; Stop 12/18/17 at 10:11; Status DC Valsartan (Diovan) 160 mg DAILY PO Last administered on 12/21/17at 09:32; Start 12/19/17 at 09:30 Lorazepam (Ativan) 0.5 mg BID PRN PO ANXIETY AND/OR INSOMNIA Last administered on 12/21/17at 10:40; Start 12/19/17 at 09:15 Cefazolin Sodium/ Dextrose 50 ml @ 100 mls/hr [employer] IV Last administered on 12/20/17at 10:28; Start 12/19/17 at 16:00; Stop 12/22/17 at 15:59 Lactated Ringer's 1,000 ml @ 30 mls/hr Q24H PRN IV SEE LABEL COMMENTS; Start at 20:45; Stop 12/21/17 at 13:58; Status DC Sodium Chloride 500 ml @ 30 mls/hr [id number] PRN IV SEE LABEL COMMENTS; Start at 20:45; Stop 12/20/17 at 18:54; Status DC Metoprolol Tartrate (Lopressor) 25 mg [employer] PRN PO SEE LABEL COMMENTS; Start 12/19/17 at 20:45; Stop 12/22/17 at 20:44 Povidone Iodine (Betadine 5% Antisepsis Kit) 1 applic [employer] DES[employer]ER PRN EACH NARE SEE LABEL COMMENTS; Start 12/19/17 at 20:45; Stop 12/22/17 at 20:44 Chlorhexidine Gluconate (Chlorhexidine 2% Cloth) 3 pack [employer] DES[employer] PRN TOPICAL SEE LABEL COMMENTS; Start 12/19/17 at 20:45; Stop 12/22/17 at 20:44 Heparin Sodium (Porcine) (Heparin Inj) 10,000 units STK-MED ONCE .ROUTE Last administered on 12/20/17at 10:55; Start 12/20/17 at 08:25; Stop 12/20/17 at 08:26 ; Status DC Heparin Sodium (Porcine) (Heparin Inj) 10,000 units STK-MED ONCE .ROUTE Last administered on 12/20/17at 12:07; Start 12/20/17 at 08:25; Stop 12/20/17 at 08:26 ; Status DC Lidocaine HCl (Xylocaine 1% Inj (50 ml)) 50 ml STK-MED ONCE .ROUTE ; Start 12/20 at 08:26; Stop 12/20/17 at 08:27; Status DC Protamine Sulfate (Protamine Sulfate Inj) 50 mg STK-MED ONCE .ROUTE ; Start at 08:28; Stop 12/20/17 at 08:29; Status DC Acetaminophen 100 ml @ As Directed STK-MED ONCE IV ; Start 12/20/17 at 11:04; Stop 12/20/17 at 11:05; Status DC Fentanyl Citrate (fentaNYL INJ) 200 mcg STK-MED ONCE .ROUTE ; Start 12/20/17 at 13:31; Stop 12/20/17 at 13:32; Status DC Nicardipine HCl (Cardene Inj) 25 mg STK-MED ONCE .ROUTE ; Start 12/20/17 at 13: 32; Stop 12/20/17 at 13:33; Status DC Nicardipine HCl 25 mg/Sodium Chloride 250 ml @ 50 mls/hr TITRATE PRN IV Blood pressure management Last administered on 12/20/17at 13:30; Start 12/20/17 at 14: 00 Morphine Sulfate (Morphine Inj) 1 mg Q3H PRN IM pain 6-10 Last administered on 12/20/17at 16:00; Start 12/20/17 at 14:00; Stop 12/20/17 at 20:45; Status DC Oxycodone/ Acetaminophen (Percocet 5-325 Mg) 1 tab Q4H PRN PO 3--5; Start at 14:00 Sodium Chloride 1,000 ml @ 84 mls/hr [id number] IV Last administered on 12/21/17at 09:36; Start 12/20/17 at 19:00; Stop 12/21/17 at 13:58; Status DC Sodium Chloride 500 ml @ 0 mls/hr Q0M ONCE IV ; Start 12/20/17 at 19:45; Stop at 19:46; Status DC Apixaban (Eliquis) 2.5 mg BID PO ; Start 12/21/17 at 09:00 Morphine Sulfate (Morphine Inj) 1 mg Q3H PRN IM pain 6-10 Last administered on 12/21/17at 01:59; Start 12/20/17 at 21:00 Sodium Chloride 250 ml @ As Directed STK-MED ONCE IV ; Start 12/20/17 at 12:00 ; Stop 12/21/17 at 14:02; Status DC Parenteral Electrolytes 1,000 ml @ As Directed STK-MED ONCE IV ; Start at 12:00; Stop 12/21/17 at 14:02; Status DC Sodium Chloride 500 ml @ As Directed STK-MED ONCE IV ; Start 12/20/17 at 12:00 ; Stop 12/21/17 at 14:02; Status DC Lidocaine HCl (Xylocaine-Mpf 1% Inj) 5 ml STK-MED ONCE OTHER ; Start 12/20/17 at 12:00; Stop 12/21/17 at 14:02; Status DC Rocuronium [place] (Zemuron Inj) 50 mg STK-MED ONCE IV PUSH ; Start 12/20/17 at 12:00; Stop 12/21/17 at 14:02; Status DC Neostigmine Methylsulfate (Prostigmine Inj) 5 mg STK-MED ONCE IV PUSH ; Start at 12:00; Stop 12/21/17 at 14:02; Status DC Glycopyrrolate (Robinul Inj) 1 mg STK-MED ONCE IV PUSH ; Start 12/20/17 at 12:00 ; Stop 12/21/17 at 14:02; Status DC Phenylephrine HCl (Neosynephrine/ NS 1000 Mcg/10ml Syr) 1,000 mcg STK-MED ONCE IV ; Start 12/20/17 at 12:00; Stop 12/21/17 at 14:02; Status DC Phenylephrine HCl (Neosynephrine Inj) 10 mg STK-MED ONCE IV ; Start 12/20/17 at 12:00; Stop 12/21/17 at 14:02; Status DC Dexamethasone Sodium Phosphate (Decadron Inj) 4 mg STK-MED ONCE IV ; Start 12/20 at 12:00; Stop 12/21/17 at 14:03; Status DC Ondansetron HCl (Zofran Inj) 4 mg STK-MED ONCE IV ; Start 12/20/17 at 12:00; Stop 12/21/17 at 14:03; Status DC Propofol (Diprivan 200 Mg/20 ml Inj) 200 mg STK-MED ONCE IV ; Start 12/20/17 at 12:00; Stop 12/21/17 at 14:03; Status DC A/P Assessment and Plan Weakness The pt endorses episodes where she feels strange and has no control over her body. She said she follows with her PCP and recently had a normal MRI. She also saw cardiology who did not believe her symptoms were of cardiac origin. She has lower extremity weakness but does have neuropathy. She also endorses dysarthria. She has a history of CVA. Bilateral carotid stenosis as seen on MRA , worse on the left. Appreciate neurology and vascular surgery consults. EEG normal. Neurosurgery consult for cervical stenosis appreciated. - neuro checks. - PT/OT/ST. - continue Eliquis and ASA. Hold for surgery. Left CEA scheduled 12/20. - oxygen as needed. - incentive spirometry. SP LEFT CEA ON 12-[address] Lester Hypertensive urgency BP still uncontrolled. - resumed home meds. Adjust regimen as needed. Increased valsartan. - clonidine as needed. Dysphagia The pt endorses problems with swallowing. She has a history of Zenker's diverticulum. - pureed diet per ST. NPO for surgery. Hyponatremia Sodium improving. - follow BMP. Hyperglycemia A1c 6.1%. - lifestyle modifications. PPx: Eliquis on hold RECONSULT PT AND OT CASE MANAGEMENT FOR DC TO SNF Discharge Planning WILL NEED SNF Carl Phillips DO December 21, 2017 15:52
[2017-12-21] MEDS ORDERED: amLODIPine BESYLATE 5 MG TAB PO ONE (16:00)
--- NOTE | 2017-12-21 16:04 | PD.CAR.PN ---
CVT Progress Note Subjective/Hospital Course: 87-year-old female with tight left carotid artery stenosis questionably symptomatic Patient is of advanced age and this is a relative barrier to carotid endarterectomy as noted in the full consult. On the other hand patient is in full control of her faculties and has reasonably satisfactory lifestyle except for the above-noted so I believe it is quite appropriate to work patient up from the cardiac point and if the risk of surgery is not prohibitive she should be considered for carotid endarterectomy despite her age Would like to perform echo over the weekend and then see what we are going to do with the patient early next week We will discuss with neurology and cardiology specialists Full consult dictated Thanks J 12/19/2017 Patient with hemodynamically significant left internal carotid artery stenosis but waxing and waning symptoms this could be related to cervical spinal stenosis She is of advanced age with some comorbidities Based on the full workup by cardiology and cardiac echo evaluation we are to assess the risk for carotid endarterectomy in this patient Based on all of the above we will decide whether this bernal to proceed with carotid endarterectomy provided the risk and benefit ratios Agree fully with Dr. Luna's evaluation 12/21/2017 Status post left carotid endarterectomy for near occlusive disease of the carotid bifurcation Incision is clean and dry Neurologically patient is fully intact DC PADMINI DC A-line DC Michelle Patient can transfer to regular floor from my standpoint Eliquis to be restarted today and patient can be discharged from the hospital from my point as per medicine Nothing to add to care Follow-up with me 3-4 weeks Objective: Vital Signs Date Time Temp Pulse Resp B/P (MAP) Pulse Ox O2 Delivery O2 Flow Rate FiO2 12/21/17 15:00 74 12/21/17 15:00 98.3 74 20 167/81 (109) 99 Arterial Line 12/21/17 15:00 99 Nasal Cannula 2.00 12/21/17 11:00 78 12/21/17 11:00 96 Nasal Cannula 2.00 12/21/17 11:00 98.4 78 20 161/75 (103) 94 164/61 (95) 12/21/17 08:04 99 Nasal Cannula 3.00 12/21/17 07:00 98.7 72 18 148/54 (85) 99 148/49 (82) 12/21/17 07:00 72 12/21/17 07:00 99 Nasal Cannula 2.00 5/1/18 03:00 56 12/21/17 03:00 98.3 56 18 103/42 (62) 99 91/53 (66) 12/21/17 03:00 99 Nasal Cannula 2.00 12/21/17 02:04 18 12/20/17 23:29 18 12/20/17 23:00 97.8 58 18 97/44 (61) 99 99/39 (59) 12/20/17 23:00 99 Nasal Cannula 2.00 12/20/17 23:00 55 12/20/17 22:30 99 Nasal Cannula 3.00 12/20/17 19:00 97.8 58 18 101/46 (64) 99 81/21 (41) 12/20/17 19:00 58 12/20/17 19:00 99 Nasal Cannula 3.00 12/20/17 18:00 60 16 107/39 (61) 98 100/39 (59) 12/20/17 17:00 55 16 136/72 (93) 98 138/71 (93) 12/20/17 16:30 57 16 122/70 (87) 98 132/44 (73) Result Diagram: 12/20/17 1900 12/19/171 Deisy Lester MD December 21, 2017 16:04
[2017-12-21 20:00] VITALS: BP 156/64; PULSE 58; RESP 20; TEMP 98.4; O2SAT 99
[2017-12-22] VITALS (18 sets, daily range): BP systolic 109–169; BP diastolic 52–73; PULSE 64–72; RESP 16–20; TEMP 97.6–99.3; O2SAT 93–99
[2017-12-22 05:19] LABS: AUTOMATED NEUTROPHIL # 4.5 TH/MM3 (1.8-7.7); BASOPHIL % 0.2 % (0.0-2.0); EOSINOPHIL # 0.1 TH/MM3 (0-0.4); EOSINOPHIL % 1.3 % (0.0-4.0); HEMATOCRIT 24.2 % (35.0-46.0); HEMOGLOBIN 8.3 GM/DL (11.6-15.3); LYMPHOCYTE # 1.6 TH/MM3 (1.0-4.8); MEAN CORPUSCULAR HEMOGLOBIN 33.9 PG (27.0-34.0); MEAN CORPUSCULAR HGB CONC 34.3 % (32.0-36.0); MEAN PLATELET VOLUME 8.6 FL (7.0-11.0); MONO % 8.2 % (0.0-8.0); MONOCYTE # 0.6 TH/MM3 (0-0.9); NEUT % 66.3 % (16.0-70.0); PLATELET COUNT 116 TH/MM3 (150-450); RED BLOOD COUNT 2.44 MIL/MM3 (4.00-5.30); WHITE BLOOD COUNT 6.8 TH/MM3 (4.0-11.0)
[2017-12-22 05:51] LABS: ALBUMIN 2.7 GM/DL (3.4-5.0); ALKALINE PHOSPHATASE 50 U/L (45-117); ALT (GPT) 13 U/L (10-53); AST (GOT) 15 U/L (15-37); BICARBONATE 27.3 MEQ/L (21.0-32.0); BLOOD UREA NITROGEN 22 MG/DL (7-18); CALCIUM 8.1 MG/DL (8.5-10.1); CHLORIDE 104 MEQ/L (98-107); CREATININE 0.86 MG/DL (0.50-1.00); FREE T4 1.09 NG/DL (0.76-1.46); GLOMERULAR FILTRATION RATE 62 ML/MIN (>89); GLUCOSE,RANDOM 87 MG/DL (74-106); MAGNESIUM 1.8 MG/DL (1.5-2.5); PHOSPHORUS 2.5 MG/DL (2.5-4.9); SODIUM (NA) 138 MEQ/L (136-145); TOTAL BILIRUBIN ADULT 0.5 MG/DL (0.2-1.0); TOTAL PROTEIN 5.4 GM/DL (6.4-8.2)
[2017-12-22] MEDS: DOCUSATE SODIUM 50 MG/SENNA 8.6 MG TAB PO SCH ×2 (09:23→22:48)
[2017-12-22] MEDS: APIXABAN 2.5 MG TABLET PO SCH ×2 (09:23→22:47)
[2017-12-22] MEDS: ALLOPURINOL 300 MG TAB PO SCH (09:23)
[2017-12-22] MEDS: NADOLOL 40 MG TAB PO SCH ×2 (09:23→10:27)
[2017-12-22] MEDS: VALSARTAN 160 MG TAB PO SCH (09:23)
[2017-12-22] MEDS: LORazepam 0.5 MG TAB PO PRN ×2 (09:23→22:48)
[2017-12-22] MEDS: amLODIPine BESYLATE 5 MG TAB PO SCH (09:24)
[2017-12-22] MEDS: ACETAMINOPHEN 325 MG TAB PO PRN ×2 (09:24→22:52)
[2017-12-22] MEDS: SODIUM CHLORIDE 0.9% FLUSH 10 ML FLUSH IV FLUSH SCH ×2 (09:25→22:48)
--- NOTE | 2017-12-22 10:46 | PD.CAR.PN ---
CVT Progress Note Subjective/Hospital Course: 87-year-old female with tight left carotid artery stenosis questionably symptomatic Patient is of advanced age and this is a relative barrier to carotid endarterectomy as noted in the full consult. On the other hand patient is in full control of her faculties and has reasonably satisfactory lifestyle except for the above-noted so I believe it is quite appropriate to work patient up from the cardiac point and if the risk of surgery is not prohibitive she should be considered for carotid endarterectomy despite her age Would like to perform echo over the weekend and then see what we are going to do with the patient early next week We will discuss with neurology and cardiology specialists Full consult dictated Thanks Perlita 12/19/2017 Patient with hemodynamically significant left internal carotid artery stenosis but waxing and waning symptoms this could be related to cervical spinal stenosis She is of advanced age with some comorbidities Based on the full workup by cardiology and cardiac echo evaluation we are to assess the risk for carotid endarterectomy in this patient Based on all of the above we will decide whether this bernal to proceed with carotid endarterectomy provided the risk and benefit ratios Agree fully with Dr. Luna's evaluation 12/21/2017 Status post left carotid endarterectomy for near occlusive disease of the carotid bifurcation Incision is clean and dry Neurologically patient is fully intact DC PADMINI DC A-line DC Michelle Patient can transfer to regular floor from my standpoint Eliquis to be restarted today and patient can be discharged from the hospital from my point as per medicine Nothing to add to care Follow-up with me 3-4 weeks 12/22/2017 Patient doing very well Neurologically fully intact, awake alert and oriented Neck incision is clean and dry Patient has occasional numbness in her extremities which is due to the long- standing spinal cervical stenosis and degenerative disc disease Patient can transfer to rehab from my point any time We will sign off at this time Objective: Vital Signs Date Time Temp Pulse Resp B/P (MAP) Pulse Ox O2 Delivery O2 Flow Rate FiO2 12/22/17 07:00 97.6 69 20 169/73 (105) 96 12/22/17 07:00 96 Nasal Cannula 2.00 12/22/17 07:00 69 12/22/17 04:00 65 12/22/17 04:00 97.6 65 20 157/71 (99) 99 12/22/17 04:00 99 Room Air 12/22/17 00:00 64 16 130/64 (86) 99 12/22/17 00:00 99 Nasal Cannula 2.00 12/22/17 00:00 64 12/21/17 22:00 Nasal Cannula 2.00 12/21/17 21:00 98 Room Air 12/21/17 20:00 98.4 58 20 156/64 (94) 99 12/21/17 20:00 58 12/21/17 20:00 99 Nasal Cannula 2.00 12/21/17 15:00 74 12/21/17 15:00 98.3 74 20 167/81 (109) 99 Arterial Line 12/21/17 15:00 99 Nasal Cannula 2.00 12/21/17 11:00 78 12/21/17 11:00 96 Nasal Cannula 2.00 12/21/17 11:00 98.4 78 20 161/75 (103) 94 164/61 (95) Labs: Laboratory Tests Test 12/22/17 03:45 White Blood Count 6.8 TH/MM3 (4.0-11.0) Red Blood Count 2.44 MIL/MM3 (4.00-5.30) Hemoglobin 8.3 GM/DL (11.6-15.3) Hematocrit 24.2 % (35.0-46.0) Mean Corpuscular Volume 99.0 FL (80.0-100.0) Mean Corpuscular Hemoglobin 33.9 PG (27.0-34.0) Mean Corpuscular Hemoglobin Concent 34.3 % (32.0-36.0) Red Cell Distribution Width 15.0 % (11.6-17.2) Platelet Count 116 TH/MM3 (150-450) Mean Platelet Volume 8.6 FL (7.0-11.0) Neutrophils (%) (Auto) 66.3 % (16.0-70.0) Lymphocytes (%) (Auto) 24.0 % (9.0-44.0) Monocytes (%) (Auto) 8.2 % (0.0-8.0) Eosinophils (%) (Auto) 1.3 % (0.0-4.0) Basophils (%) (Auto) 0.2 % (0.0-2.0) Neutrophils # (Auto) 4.5 TH/MM3 (1.8-7.7) Lymphocytes # (Auto) 1.6 TH/MM3 (1.0-4.8) Monocytes # (Auto) 0.6 TH/MM3 (0-0.9) Eosinophils # (Auto) 0.1 TH/MM3 (0-0.4) Basophils # (Auto) 0.0 TH/MM3 (0-0.2) CBC Comment DIFF FINAL Differential Comment Blood Urea Nitrogen 22 MG/DL (7-18) Creatinine 0.86 MG/DL (0.50-1.00) Random Glucose 87 MG/DL (74-106) Total Protein 5.4 GM/DL (6.4-8.2) Albumin 2.7 GM/DL (3.4-5.0) Calcium Level 8.1 MG/DL (8.5-10.1) Phosphorus Level 2.5 MG/DL (2.5-4.9) Magnesium Level 1.8 MG/DL (1.5-2.5) Alkaline Phosphatase 50 U/L (45-117) Aspartate Amino Transf (AST/SGOT) 15 U/L (15-37) Alanine Aminotransferase (ALT/SGPT) 13 U/L (10-53) Total Bilirubin 0.5 MG/DL (0.2-1.0) Sodium Level 138 MEQ/L (136-145) Potassium Level 3.9 MEQ/L (3.5-5.1) Chloride Level 104 MEQ/L (98-107) Carbon Dioxide Level 27.3 MEQ/L (21.0-32.0) Anion Gap 7 MEQ/L (5-15) Estimat Glomerular Filtration Rate 62 ML/MIN (>89) Free Thyroxine 1.09 NG/DL (0.76-1.46) Thyroid Stimulating Hormone 3rd Gen 1.060 uIU/ML (0.358-3.740) Result Diagram: 12/22/17 0345 12/22/17 0345 Deisy Lester MD December 22, 2017 10:46
[2017-12-22 15:38] LABS: HEMOGLOBIN A1C 6.1 % (4.3-6.0)
--- NOTE | 2017-12-22 18:57 | HHI.PR ---
Subjective Remarks f/u for anemia Still with mild pain left neck, no chest pain or SOB. Constipated Feels stronger today. No obvious bleeding anywhere. Objective Vitals Vital Signs Date Time Temp Pulse Resp B/P (MAP) Pulse Ox O2 Delivery O2 Flow Rate FiO2 12/22/17 17:00 68 12/22/17 16:00 66 12/22/17 15:37 98 2.00 12/22/17 15:37 98.6 71 18 109/52 (71) 98 12/22/17 15:00 69 12/22/17 14:00 66 12/22/17 13:00 72 12/22/17 12:00 68 12/22/17 11:57 97 2.00 12/22/17 11:57 99.3 69 16 153/68 (96) 97 12/22/17 11:00 66 12/22/17 11:00 66 12/22/17 07:00 97.6 69 20 169/73 (105) 96 12/22/17 07:00 96 Nasal Cannula 2.00 12/22/17 07:00 69 12/22/17 04:00 65 12/22/17 04:00 97.6 65 20 157/71 (99) 99 12/22/17 04:00 99 Room Air 12/22/17 00:00 64 16 130/64 (86) 99 12/22/17 00:00 99 Nasal Cannula 2.00 12/22/17 00:00 64 12/21/17 22:00 Nasal Cannula 2.00 12/21/17 21:00 98 Room Air 12/21/17 20:00 98.4 58 20 156/64 (94) 99 12/21/17 20:00 58 12/21/17 20:00 99 Nasal Cannula 2.00 I/O 12/21/17 12/21/17 12/21/17 12/22/17 12/22/17 12/22/17 07:00 15:00 23:00 07:00 15:00 23:00 Intake Total 1925 ml 385 ml 720 ml 240 ml 480 ml Output Total 315 ml 500 ml 700 ml 400 ml Balance 1610 ml 385 ml 220 ml -460 ml 80 ml Intake Oral 120 ml 720 ml 240 ml 480 ml IV Total 1805 ml 385 ml Output Urine Total 255 ml 460 ml 700 ml 400 ml Drainage Total 60 ml 40 ml # Voids 1 # Bowel Movements 0 0 Result Diagram: 12/22/17 0345 12/22/17 0345 Objective Remarks GENERAL: Awake alert and oriented 3 talkative and cooperative very anxious NECK: Trachea midline. No JVD. Left-sided CEA wound clean, (+) ecchymoses left neck and shoulder area, with small hematoma CARDIOVASCULAR: Regular rate and rhythm. S1-S2 no S3 or S4 no heave or thrill or rub or gallop RESPIRATORY: No accessory muscle use. Clear to auscultation. Breath sounds equal bilaterally. GASTROINTESTINAL: Abdomen soft, non-tender, nondistended. Hepatic and splenic margins not palpable. MUSCULOSKELETAL: Extremities without clubbing, cyanosis, or edema. No obvious deformities. NEUROLOGICAL: Awake and alert. No obvious cranial nerve deficits. Procedures DATE OF OPERATION: 12/20/2017 PREOPERATIVE DIAGNOSIS: Tight left internal carotid artery stenosis, transient ischemic attack. POSTOPERATIVE DIAGNOSIS: About 90% left internal carotid artery stenosis, transient ischemic attack. OPERATIVE PROCEDURE: Left carotid endarterectomy. SURGEON: Deisy Lester MD ANESTHESIA: General. ESTIMATED BLOOD LOSS: 50 mL. DESCRIPTION OF PROCEDURE:: The patient prepped and draped in usual fashion. Left presternocleidomastoid incision made, deepened down through platysma onto the carotid sheath. The jugular vein was dissected from the carotid artery where it sort of stuck to it. Facial vein was divided between 2-0 silks and ligated. Carotid exposed. Common carotid, internal, external carotid arteries are now dissected with sharp dissection. Hypoglossal nerves carefully identified and preserved. Weitlaner retractor was placed. The umbilical tapes were placed around common, internal and external carotid arteries and then loosely, Yang's placed on it. The patient was given 5000 units of heparin and then the common carotid is clamped with a [place]ake[place] clamp and internal carotid with curved bulldog. Vessel was opened longitudinally with Remy scissors, an [place] shunt immediately placed. The patient has a huge plaque, which nearly totally occupies the vessel and to be honest, I do not see where the opening is for the blood flow in this vessel. The plaque is measuring about 2 cm in length and occupies most of the common carotid artery going into the internal carotid artery. It was so hard, I could not even open it with scissors, so now in the media plane, the whole plaque was dissected free with a [place] dissector and then removed. The mucosa on the internal carotid artery peeled off nicely and then the common carotid artery is undermined with a [place] dissector. Specimen is sent off. The area irrigated with copious amounts of heparinized saline. Small debris removed with forceps and . The patient has a fairly large carotid and therefore, there is no need to put a patch. Vessel is repaired with running 6-0 Prolene, and prior to completion of the repair, the [place] shunt is removed and the blood flow reestablished in the usual order and fashion preventing internal carotid embolization. Dopplerable pulses is checked, is very brisk. Incision is irrigated with saline. A 7 flat PADMINI placed over the vessel and incision closed with 2-0 Vicryl in layers and 4-0 Monocryl for the skin. The patient taken out of the operating room in a stable condition. At the end the procedure, patient moves all 4 extremities, is neurologically fully intact. Deisy Lester MD A/P Assessment and Plan Weakness The pt endorses episodes where she feels strange and has no control over her body. She said she follows with her PCP and recently had a normal MRI. She also saw cardiology who did not believe her symptoms were of cardiac origin. She has lower extremity weakness but does have neuropathy. She also endorses dysarthria. She has a history of CVA. Bilateral carotid stenosis as seen on MRA , worse on the left. Appreciate neurology and vascular surgery consults. EEG normal. Neurosurgery consult for cervical stenosis appreciated. - Eliquis and ASA resumed. Status post left CEA 12/20/2016. - oxygen as needed. - incentive spirometry. Hypertensive urgency BP still uncontrolled. - resumed home meds. Adjust regimen as needed. Continue valsartan, norvasc, metoprolol - clonidine as needed. Dysphagia The pt endorses problems with swallowing. She has a history of Zenker's diverticulum. - pureed diet per ST. f/u recs Hyponatremia Sodium improving. - follow BMP. Hyperglycemia A1c 6.1%. - lifestyle modifications. Anemia-hemoglobin dropped from 10.5-8.3, recheck CBC tomorrow. Per patient, she would like to be DNR. Full liquid diet for now Will need SNF Discharge Planning Discharge once cleared by vascular surgery to SNF Leesa Lino MD December 22, 2017 18:57
[2017-12-23] VITALS (10 sets, daily range): BP systolic 139–161; BP diastolic 66–74; PULSE 56–74; RESP 16–18; TEMP 97.7; O2SAT 92–99
[2017-12-23] MEDS: ACETAMINOPHEN 325 MG TAB PO PRN ×2 (04:59→10:58)
[2017-12-23] MEDS ORDERED: VALS1TAB64 PO (07:50)
[2017-12-23] MEDS ORDERED: AMLO5 PO (07:50)
[2017-12-23] MEDS ORDERED: LORA0.5T PO (07:50)
[2017-12-23] MEDS ORDERED: TRAM50TA PO (07:50)
[2017-12-23] MEDS ORDERED: PERI PO (07:50)
--- NOTE | 2017-12-23 07:51 | HHI.DS ---
Discharge Summary Admission Date Dec 17, 2017 at 12:31 Discharge Date: December 23, 2017 Admitting Diagnosis hyponatremia, weakness (1) S/P carotid endarterectomy ICD Code: Z98.890 - Other specified postprocedural states (2) Hyponatremia ICD Code: E87.1 - Hypo-osmolality and hyponatremia Status: Acute (3) Weakness ICD Code: R53.1 - Weakness Status: Acute (4) Spinal stenosis ICD Code: M48.00 - Spinal stenosis, site unspecified (5) Hypertension ICD Code: I10 - Essential (primary) hypertension Procedures DATE OF OPERATION: 12/20/2017 PREOPERATIVE DIAGNOSIS: Tight left internal carotid artery stenosis, transient ischemic attack. POSTOPERATIVE DIAGNOSIS: About 90% left internal carotid artery stenosis, transient ischemic attack. OPERATIVE PROCEDURE: Left carotid endarterectomy. SURGEON: Deisy Lester MD ANESTHESIA: General. ESTIMATED BLOOD LOSS: 50 mL. DESCRIPTION OF PROCEDURE:: The patient prepped and draped in usual fashion. Left presternocleidomastoid incision made, deepened down through platysma onto the carotid sheath. The jugular vein was dissected from the carotid artery where it sort of stuck to it. Facial vein was divided between 2-0 silks and ligated. Carotid exposed. Common carotid, internal, external carotid arteries are now dissected with sharp dissection. Hypoglossal nerves carefully identified and preserved. Weitlaner retractor was placed. The umbilical tapes were placed around common, internal and external carotid arteries and then loosely, Yang's placed on it. The patient was given 5000 units of heparin and then the common carotid is clamped with a DeBakey clamp and internal carotid with curved bulldog. Vessel was opened longitudinally with Remy scissors, an [place] shunt immediately placed. The patient has a huge plaque, which nearly totally occupies the vessel and to be honest, I do not see where the opening is for the blood flow in this vessel. The plaque is measuring about 2 cm in length and occupies most of the common carotid artery going into the internal carotid artery. It was so hard, I could not even open it with scissors, so now in the media plane, the whole plaque was dissected free with a [place] dissector and then removed. The mucosa on the internal carotid artery peeled off nicely and then the common carotid artery is undermined with a [place] dissector. Specimen is sent off. The area irrigated with copious amounts of heparinized saline. Small debris removed with forceps and . The patient has a fairly large carotid and therefore, there is no need to put a patch. Vessel is repaired with running 6-0 Prolene, and prior to completion of the repair, the [place] shunt is removed and the blood flow reestablished in the usual order and fashion preventing internal carotid embolization. Dopplerable pulses is checked, is very brisk. Incision is irrigated with saline. A 7 flat PADMINI placed over the vessel and incision closed with 2-0 Vicryl in layers and 4-0 Monocryl for the skin. The patient taken out of the operating room in a stable condition. At the end the procedure, patient moves all 4 extremities, is neurologically fully intact. Deisy Lester MD Brief History - From Admission The patient is an 87-year-old female with a past medical history of A. fib and CVA who is presenting to the hospital with weakness. The patient says that she recently moved to [facility] and [facility] area. She says she has been having a hard time over there and has not been getting the services she requires. She says for the past few months she has been having these episodes of weakness. She says she does not pass out and is fully alert during these episodes. She feels a strange sensation and she loses control of her body. She says the sensations shortly disappear. She tries to sit down during these episodes so she does not fall down. She said they have been occurring at a rate of 2 times per day. She has been following up with her primary care doctor and recently had an MRI done which was reportedly negative for any acute process. She also saw her all round butcher recently who did not believe her symptoms to be of cardiac origin. The patient endorses difficulty with her speech. She has a hard time saying the words she wants to. She also endorses some difficulty swallowing, stating that she has been living off of Boost. The patient says she has lost about 20 pounds recently. She believes it is difficult to be living alone at this time. CBC/BMP: 12/22/17 0345 12/22/17 0345 Significant Findings Laboratory Tests Test 12/20/17 19:00 12/22/17 03:45 Hemoglobin 10.5 GM/DL (11.6-15.3) 8.3 GM/DL (11.6-15.3) Hematocrit 30.6 % (35.0-46.0) 24.2 % (35.0-46.0) Red Blood Count 2.44 MIL/MM3 (4.00-5.30) Platelet Count 116 TH/MM3 (150-450) Monocytes (%) (Auto) 8.2 % (0.0-8.0) Blood Urea Nitrogen 22 MG/DL (7-18) Total Protein 5.4 GM/DL (6.4-8.2) Albumin 2.7 GM/DL (3.4-5.0) Calcium Level 8.1 MG/DL (8.5-10.1) Estimat Glomerular Filtration Rate 62 ML/MIN (>89) Hemoglobin A1c 6.1 % (4.3-6.0) Imaging Last Impressions Cervical Spine X-Ray 12/19/17 0000 Signed Impressions: Service Date/Time: Tuesday, December 19, 2017 11:46 - CONCLUSION: Result translational instability. Anterolisthesis and retrolisthesis as described above is stable with flexion and extension. Severe degenerative changes. Coleman Santiago MD Neck Magnetic Resonance Angiography 12/18/17 0000 Signed Impressions: Service Date/Time: Monday, December 18, 2017 07:48 - CONCLUSION: Hemodynamically significant stenosis of the left distal common carotid artery at the bifurcation with moderate atherosclerosis of the left carotid bulb. Mild left subclavian atherosclerosis is also seen as above. Coleman Santiago MD Head Magnetic Resonance Angiography 12/18/17 0000 Signed Impressions: Service Date/Time: Monday, December 18, 2017 07:48 - CONCLUSION: Mild atherosclerosis. No high grade stenosis or aneurysm. Coleman Santiago MD Cervical Spine MRI 12/18/17 0000 Signed Impressions: Service Date/Time: Monday, December 18, 2017 07:48 - CONCLUSION: Degenerative changes and post surgical changes are noted as above. Coleman Santiago MD Brain MRI 12/18/17 Signed Impressions: Service Date/Time: Monday, December 18, 2017 07:48 - CONCLUSION: Mild atrophy and white matter disease. Coleman Santiago MD Head CT 12/17/17824 Signed Impressions: Service Date/Time: Sunday, December 17, 2017 08:41 - CONCLUSION: No acute disease. Porfirio Ferreira MD Chest X-Ray 12/17/17824 Signed Impressions: Service Date/Time: Sunday, December 17, 2017 08:56 - CONCLUSION: Normal examination. Mild hyperinflation. Porfirio Ferreira MD Cervical Spine CT 12/17/17 Signed Impressions: Service Date/Time: Monday, December 18, 2017 08:44 - CONCLUSION: [id number] degenerative changes and postsurgical changes noted. Coleman Santiago MD Carotid Artery Ultrasound 12/17/17 Signed Impressions: Service Date/Time: Sunday, December 17, 2017 14:26 - CONCLUSION: Potential stenosis bilaterally in the bifurcation on the right and proximally on the left. CT angiography of the cervicobrachial arch and carotid arteries is recommended for further evaluation if clinically indicated. Juvenal Adam MD PE at Discharge GENERAL: Awake alert and oriented 3 talkative and cooperative very anxious NECK: Trachea midline. No JVD. Left-sided CEA wound clean, (+) ecchymoses left neck and shoulder area, with small hematoma CARDIOVASCULAR: Regular rate and rhythm. S1-S2 no S3 or S4 no heave or thrill or rub or gallop RESPIRATORY: No accessory muscle use. Clear to auscultation. Breath sounds equal bilaterally. GASTROINTESTINAL: Abdomen soft, non-tender, nondistended. Hepatic and splenic margins not palpable. MUSCULOSKELETAL: Extremities without clubbing, cyanosis, or edema. No obvious deformities. NEUROLOGICAL: Awake and alert. No obvious cranial nerve deficits. Pt update on day of discharge Feels much better today says pain is better controlled. Able to eat. No nausea vomiting diarrhea or constipation. Denies chest pain or shortness of breath. Plan to discharge to assisted facility. Patient with multiple questions all questions answered to the best of my ability. Hospital Course Weakness The pt endorses episodes where she feels strange and has no control over her body. She said she follows with her PCP and recently had a normal MRI. She also saw cardiology who did not believe her symptoms were of cardiac origin. She has lower extremity weakness but does have neuropathy. She also endorses dysarthria. She has a history of CVA. Bilateral carotid stenosis as seen on MRA , worse on the left. Appreciate neurology and vascular surgery consults. EEG normal. Neurosurgery consult for cervical stenosis appreciated. - Eliquis and ASA resumed. Status post left CEA 12/20/2016. - oxygen as needed. - incentive spirometry. Hypertensive urgency BP still uncontrolled. - resumed home meds. Adjust regimen as needed. Continue valsartan, norvasc, metoprolol - clonidine as needed. Dysphagia The pt endorses problems with swallowing. She has a history of Zenker's diverticulum. - pureed diet per ST. f/u recs Hyponatremia Sodium improving. - follow BMP. Hyperglycemia A1c 6.1%. - lifestyle modifications. Anemia-hemoglobin dropped from 10.5-8.3, recheck CBC tomorrow. Code status: DNR. Patient improved. Says pain is better controlled. Able to eat. She is cleared by vascular surgery for discharge. Patient is discharged to assisted facility in stable condition to follow-up with PCP and consultants as outpatient Pt Condition on Discharge: Stable Discharge Disposition: Discharge to SNF Discharge Time: > 30 minutes Discharge Instructions DIET: Follow Instructions for: Heart Healthy Diet Activities you can perform: Regular-No Restrictions Follow up Referrals: Neurosurgery - 2 Weeks PCP Follow-up - 2-3 Days Vascular Surgery - 1 Week New Medications: Amlodipine (Norvasc) 5 Mg Tab 5 MG PO DAILY for Blood Pressure Management, #60 TAB Sennosides-Docusate Sodium (Gnp Senna Plus 8.6-50 mg) 8.6 Mg-50 Mg Tab 1 TAB PO BID for Constipation, #60 TAB Changed Medications: Valsartan (Valsartan) 80 Mg Tab 160 MG PO DAILY for Blood Pressure Management, #30 TAB 0 Refills (Changed from: 80 MG) Continued Medications: Allopurinol (Allopurinol) 300 Mg Tab 300 MG PO DAILY for Gout, #30 TAB 0 Refills Apixaban (Eliquis) 2.5 Mg Tab 2.5 MG PO BID for Blood Clot Prevention, TAB 0 Refills Ipratropium HFA 12.9 GM Inh (Atrovent HFA 12.9 GM Inh) 17 Mcg/Actuation Aer 2 PUFF INH QID, #1 INHALER 0 Refills Lorazepam (Lorazepam) 0.5 Mg Tab 0.5 MG PO HS PRN for ANXIETY AND/OR INSOMNIA, #10 TAB 0 Refills (This prescription has been renewed) Nadolol (Nadolol) 80 Mg Tab 80 MG PO DAILY, #30 TAB 0 Refills Simvastatin (Simvastatin) 40 Mg Tab 40 MG PO HS for Cholesterol Management, #30 TAB 0 Refills Tramadol (Tramadol) 50 Mg Tab 50 MG PO Q6H PRN for PAIN, #20 TAB 0 Refills (This prescription has been renewed ) Makayla Koch MD December 23, 2017 07:51
[2017-12-23] MEDS ORDERED: PSYLLIUM HUSK SF 3.4 GM in 5.8 GM PKT PO SCH (09:00)
[2017-12-23 09:28] LABS: AUTOMATED NEUTROPHIL # 7.5 TH/MM3 (1.8-7.7); BASOPHIL % 0.2 % (0.0-2.0); EOSINOPHIL # 0.1 TH/MM3 (0-0.4); EOSINOPHIL % 1.4 % (0.0-4.0); HEMATOCRIT 30.1 % (35.0-46.0); HEMOGLOBIN 10.3 GM/DL (11.6-15.3); LYMPH % 13.6 % (9.0-44.0); LYMPHOCYTE # 1.3 TH/MM3 (1.0-4.8); MEAN CELL VOLUME 99.5 FL (80.0-100.0); MEAN CORPUSCULAR HEMOGLOBIN 33.9 PG (27.0-34.0); MEAN CORPUSCULAR HGB CONC 34.1 % (32.0-36.0); MEAN PLATELET VOLUME 8.5 FL (7.0-11.0); MONO % 5.8 % (0.0-8.0); MONOCYTE # 0.6 TH/MM3 (0-0.9); PLATELET COUNT 156 TH/MM3 (150-450); RED BLOOD COUNT 3.02 MIL/MM3 (4.00-5.30); WHITE BLOOD COUNT 9.5 TH/MM3 (4.0-11.0)
[2017-12-23] MEDS: LORazepam 0.5 MG TAB PO PRN (09:29)
[2017-12-23] MEDS: amLODIPine BESYLATE 5 MG TAB PO SCH (09:29)
[2017-12-23] MEDS: ALLOPURINOL 300 MG TAB PO SCH (09:29)
[2017-12-23] MEDS: DOCUSATE SODIUM 50 MG/SENNA 8.6 MG TAB PO SCH (09:29)
[2017-12-23] MEDS: VALSARTAN 160 MG TAB PO SCH (09:29)
[2017-12-23] MEDS: APIXABAN 2.5 MG TABLET PO SCH (09:30)
[2017-12-23] MEDS: SODIUM CHLORIDE 0.9% FLUSH 10 ML FLUSH IV FLUSH SCH (09:39)
[2017-12-23 09:53] LABS: BICARBONATE 28.4 MEQ/L (21.0-32.0); CALCIUM 9.1 MG/DL (8.5-10.1); CREATININE 0.89 MG/DL (0.50-1.00)
--- NOTE | 2017-12-25 11:12 | PQ ---
Physician Query Response Document PATIENT: CORRIE GARCIA : 1930 ADMIT DATE: 12/17/2017 12:31 PM DISCH DATE: 12/23/2017 11:15 AM RESPONDING PROVIDER #: [email or web address] QUERY TEXT: CDS Clarification Protein-calorie malnutrition in the setting of BMI 19.0, treated with Enlive diet supplements and tician consult. Other explanation of clinical findings. Unable to determine (no explanation for clinical findings). The patient's Clinical Indicators include: The medical record reflects the following clinical findings, treatment, and risk factors. * Clinical Indicators: Recent weight loss of 20 pounds, BMI 19.0 * Risk Factors: Difficulty eating 2nd to Zenkers diverticulum * Treatment: Enlive dietary supplement, Manager Product Marketing and Speech therapy consult Please clarify and document your clinical opinion in the progress notes and discharge summary includi ng the definitive and/or presumptive diagnosis (suspected or probable), related to the above clinical findings. Please include clinical findings supporting your diagnosis. Thank you, Cher Beyer : CDS/RN ext. [phone] Query created by: Cher Beyer on 12/20/2017 2:21 PM RESPONSE TEXT: Provider disagreed with this CDI query. Electronically signed by: Niko Chicas MD 12/25/2017 11:08 AM
== END 2017-12-23 11:15 | DRG 38 ==
LOC: NEPE 08:00 → NEDA 10:39 → OBSVTOIN 12:31 → NEPGCP 13:14 → N06A 22:49 → HCIS 12-20 13:24 → HCVI 12-20 15:00 → HCIS 12-22 10:05
PROVIDERS: ADMIT Hospitalist; ATTEND Hospitalist
PROC: 03CJ0ZZ Extirpation of Matter from Left Common Carotid Artery, Open Approach (ICD-10-PCS; 2017-12-20)
PROC: 03CL0ZZ Extirpation of Matter from Left Internal Carotid Artery, Open Approach (ICD-10-PCS; principal; 2017-12-20 10:55)
DX: I65.22 Occlusion and stenosis of left carotid artery (principal); E87.1 Hypo-osmolality and hyponatremia; G62.9 Polyneuropathy, unspecified; I48.91 Unspecified atrial fibrillation; R13.10 Dysphagia, unspecified; N18.3 Chronic kidney disease, stage 3 (moderate); M48.02 Spinal stenosis, cervical region; J43.9 Emphysema, unspecified; I12.9 Hypertensive chronic kidney disease with stage 1 through stage 4 chronic kidney disease, or unspecified chronic kidney disease; M10.9 Gout, unspecified; I34.0 Nonrheumatic mitral (valve) insufficiency; H91.90 Unspecified hearing loss, unspecified ear; I25.10 Atherosclerotic heart disease of native coronary artery without angina pectoris; Z86.73 Personal history of transient ischemic attack (TIA), and cerebral infarction without residual deficits; Z79.01 Long term (current) use of anticoagulants; E78.5 Hyperlipidemia, unspecified; I44.0 Atrioventricular block, first degree; R47.1 Dysarthria and anarthria; I16.0 Hypertensive urgency; R73.9 Hyperglycemia, unspecified; M50.30 Other cervical disc degeneration, unspecified cervical region; Z66 Do not resuscitate; D64.9 Anemia, unspecified; K59.00 Constipation, unspecified; Z90.710 Acquired absence of both cervix and uterus
CPT/HCPCS: 70450; 70544; 70548; 70553; 71045; 72040; 72125; 72141; 80048; 80053; 81001; 82550; 82948; 83036; 83735; 83880; 84100; 84439; 84443; 84484; 85014; 85018; 85025; 85027; 85610; 85730; 86850; 86900; 86901; 86920; 88304; 88311; 93005; 93306; 93880; 95819; A9579; G8987-GO; G8987-GP; G8988-GO; G8988-GP; G8996-GN; G8997-GN; J0131; J0690; J1100; J1644; J2270; J2370; J2405; J2710; J2720; J3010; J7030; J7040; J7050